=== PATIENT | female | born 1935 | race Caucasian/White ===

== ENCOUNTER 2018-03-28 01:46 | Emergency (ER) | payer MEDICARE, BC ==
[2018-03-28 02:23] VITALS: BP 128/65
--- NOTE | 2018-03-28 04:43 | EDM.PDOC ---
ED HPI GENERAL MEDICAL PROBLEM - General Chief Complaint: Chest Pain Stated Complaint: LEFT SIDE PAIN Time Seen by Provider: 03/28/18 02:31 Source of Information: Reports: Patient History Limitations: Reports: No Limitations - History of Present Illness INITIAL COMMENTS - FREE TEXT/NARRATIVE: This lady complains of pain under left breast along rib margin. Seems maybe belching helps. She's worried about K+ and TSH. Has a pacemaker. previous bypass and afrib. No sob, nolnause ano cp with exertion. She thinks maybe she strained too much while pulling on compression stockings. - Related Data Allergies Allergy/AdvReac Type Severity Reaction Status Date / Time codeine AdvReac Hallucinati Verified 03/28/18 02:01 ons Qxjcsqj-Dof-Hya Reductase AdvReac Joint Pain Verified 03/28/18 02:01 Inhibitor Home Meds: Home Meds LORazepam 0.5 mg PO Q4H PRN 11/16/13 [History] Thyroid [Mullens Thyroid] 60 mg PO DAILY 11/16/13 [History] Aspirin [Halfprin] 81 mg PO DAILY 11/23/15 [History] Ramipril 2.5 mg PO DAILY 11/23/15 [History] Sotalol HCl [Sotalol] 80 mg PO BID 11/23/15 [History] Magnesium Oxide [Magox 400] 241.3 mg PO BID 02/14/16 [History] Metoprolol Tartrate 12.5 mg PO BID 02/14/16 [History] Nitroglycerin [Nitrostat] 0.4 mg SL ASDIRECTED 02/14/16 [History] Warfarin [Coumadin] 5 mg PO ASDIRECTED 02/14/16 [History] Warfarin [Coumadin] 6.25 mg PO ASDIRECTED 03/28/18 [History] Past Medical History HEENT History: Reports: Impaired Vision Cardiovascular History: Reports: Afib, Arrhythmia, Hypertension, Pacemaker 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: Reports: Sleep Apnea 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: Musculoskeletal History: Reports: Osteoarthritis Neurological History: Reports: TIA Psychiatric History: Reports: Anxiety Endocrine/Metabolic History: Reports: Hyperthyroidism Hematologic History: Reports: Anticoagulation Therapy - Infectious Disease History Infectious Disease History: Reports: Chicken Pox, Measles, Shingles - Past Surgical History HEENT Surgical History: Reports: Oral Surgery Cardiovascular Surgical History: Reports: Cardiac Ablation, Coronary Artery Bypass, Pacer GI Surgical History: Reports: Appendectomy, Cholecystectomy Endocrine Surgical History: Reports: Thyroidectomy Musculoskeletal Surgical History: Reports: Knee Replacement, Shoulder Surgery Social & Family History - Tobacco Use Smoking Status *Q: Never Smoker - Recreational Drug Use Recreational Drug Use: No ED ROS GENERAL - Review of Systems Review Of Systems: ROS reveals no pertinent complaints other than HPI. ED EXAM, GENERAL - Physical Exam Exam: See Below Exam Limited By: No Limitations General Appearance: Alert, WD/WN, No Apparent Distress Eye Exam: Bilateral Eye: Normal Inspection Throat/Mouth: Normal Inspection Neck: Normal Inspection Respiratory/Chest: Lungs Clear, Other (moderately tend along left costal margin inframammary area) Peripheral Pulses: 2+: Radial (L), Radial (R), Posterior Tibial (L), Posterior Tibial (R) GI/Abdominal: Non-Tender Back Exam: Normal Inspection Extremities: Normal Inspection Neurological: Alert, Oriented Psychiatric: Normal Affect Skin Exam: Warm, Dry Course - Vital Signs Last Recorded V/S: Last Vital Signs Temp 36.8 C 03/28/18 01:59 Pulse 60 03/28/18 01:59 Resp 16 03/28/18 01:59 BP 128/65 03/28/18 01:59 Pulse Ox 99 03/28/18 01:59 - Orders/Labs/Meds Orders: Active Orders 24 hr Category Date Time Status EKG Documentation Completion [RC] ASDIRECTED Care 03/28/18 02:24 Active Chest 1V Frontal [CR] Urgent Exams 03/28/18 02:24 Taken EKG 12 Lead [EK] Urgent Ther 03/28/18 02:24 Ordered Labs: Laboratory Tests 03/28/18 03/28/18 03/28/18 Range/Units 02:35 02:35 03:36 WBC 7.2 (4.5-11.0) K/uL RBC 3.34 (3.30-5.50) M/uL Hgb 7.3 L D (12.0-15.0) g/dL Hct 23.7 L (36.0-48.0) % MCV 71 L (80-98) fL MCH 22 L (27-31) pg MCHC 31 L (32-36) % Plt Count 290 (150-400) K/uL Neut % (Auto) 57 (36-66) % Lymph % (Auto) 26 (24-44) % [place] % (Auto) 13 H (2-6) % Eos % (Auto) 3 (2-4) % Baso % (Auto) 0 (0-1) % Sodium 129 L (140-148) mmol/L Potassium 3.9 (3.6-5.2) mmol/L Chloride 93 L (100-108) mmol/L Carbon Dioxide 24 (21-32) mmol/L Anion Gap 15.9 H (5.0-14.0) mmol/L BUN 22 H (7-18) mg/dL Creatinine 1.2 H (0.6-1.0) mg/dL Est Cr Clr Drug Dosing 30.93 mL/min Estimated GFR (MDRD) 43 L (>60) Glucose 123 H (74-106) mg/dL Calcium 8.6 (8.5-10.1) mg/dL Total Bilirubin 0.6 (0.2-1.0) mg/dL AST 22 (15-37) U/L ALT 22 (12-78) U/L Alkaline Phosphatase 113 (46-116) U/L Troponin I < 0.017 (0.000-0.056) ng/mL Total Protein 6.5 (6.4-8.2) g/dL Albumin 3.1 L (3.4-5.0) g/dL Globulin 3.4 (2.3-3.5) g/dL Albumin/Globulin Ratio 0.9 L (1.2-2.2) - Radiology Interpretation Free Text/Narrative:: CXR shows normal heart size normal lung markings. pacemaker. - Re-Assessments/Exams Free Text/Narrative Re-Assessment/Exam: 03/28/18 07:11 EKG show atrial pacing borderline t abn. 03/28/18 07:13 She has remained pain free the entire time except when I palpate the rib margin Departure - Departure Time of Disposition: 04:40 Disposition: Home, Self-Care 01 Condition: Fair Clinical Impression: Chest wall pain Instructions: Chest Wall Pain, [id number] Referrals: Deedee Kumar PA [Primary Care Provider] - Forms: ED Department Discharge Additional Instructions: This appears to be pain in the chest wall and not from your heart. It may be from over exertion pulling on the compression stockings. You are severely anemic and this has developed over a long period of time. It looks like iron deficiency and this can happen from slow blood loss over along period. You will need further tests and iron replacement. If you continue to have chest pains you might need a transfusion. Please see your doctor in the next couple days. Return to the ER at any time if needed. - My Orders Last 24 Hours: My Active Orders 03/28/18 02:24 EKG Documentation Completion [RC] ASDIRECTED Chest 1V Frontal [CR] Urgent EKG 12 Lead [EK] Urgent - Assessment/Plan Last 24 Hours: My Active Orders 03/28/18 02:24 EKG Documentation Completion [RC] ASDIRECTED Chest 1V Frontal [CR] Urgent EKG 12 Lead [EK] Urgent
--- NOTE | 2018-03-28 09:40 | CR ---
CHEST: Portal CLINICAL HISTORY:Chest pain COMPARISON:25 March 2014 FINDINGS: The heart is mildly enlarged pulmonary vascular is normal. Patient has had previous sterno noe. There is a permanent cardiac pacer. There are atherosclerotic changes in the aorta. Lung vyas are clear IMPRESSION: Myocardial megaly No acute cardiopulmonary process
== END 2018-03-28 05:05 | disposition home or self-care (01) ==
LOC: JP.ED 01:46
DX: R07.89 Other chest pain (principal); E05.90 Thyrotoxicosis, unspecified without thyrotoxic crisis or storm; I48.91 Unspecified atrial fibrillation; I10 Essential (primary) hypertension; M19.90 Unspecified osteoarthritis, unspecified site; Z79.899 Other long term (current) drug therapy; Z79.01 Long term (current) use of anticoagulants; Z79.82 Long term (current) use of aspirin; Z88.8 Allergy status to other drugs, medicaments and biological substances; Z88.5 Allergy status to narcotic agent
CPT/HCPCS: 36415; 71045; 71045-26; 80053; 84484; 85025; 93005; 93010; 99284-25

== ENCOUNTER 2019-02-25 14:35 | Emergency (ER) | payer MEDICARE ==
[2019-02-25 14:48] VITALS: BP 186/78
[2019-02-25] MEDS ORDERED: Acetaminophen 500 MG Tab PO ONE (15:20)
[2019-02-25] MEDS ORDERED: Cyclobenzaprine 10 MG Tab PO ONE (15:21)
--- NOTE | 2019-02-25 15:29 | EDM.PDOC ---
ED HPI GENERAL MEDICAL PROBLEM - General Chief Complaint: Back Pain or Injury Stated Complaint: BACK PAIN Time Seen by Provider: 02/25/19 14:53 Source of Information: Reports: Patient, Family History Limitations: Reports: No Limitations - History of Present Illness INITIAL COMMENTS - FREE TEXT/NARRATIVE: 83 yo female presents with her family to the ER complaining of bilateral lumbar and flank pain. She denies injury to her back. She has had 2 chiropractor appt earlier this week without relief. she has been taking 303 formula without relief. Denies fever, chills, or dysuria. Lower Back Pain Score (Numeric/FACES): 10 - Related Data Allergies Allergy/AdvReac Type Severity Reaction Status Date / Time codeine AdvReac Hallucinati Verified 02/25/19 14:46 ons Kbljaty-Ikx-Cyq Reductase AdvReac Joint Pain Verified 02/25/19 14:46 Inhibitor Home Meds: Home Meds LORazepam 0.5 mg PO Q4H PRN 11/16/13 [History] Aspirin [Halfprin] 81 mg PO DAILY 11/23/15 [History] Ramipril 2.5 mg PO DAILY 11/23/15 [History] Sotalol HCl [Sotalol] 80 mg PO BID 11/23/15 [History] Magnesium Oxide [Magox 400] 241.3 mg PO BID 02/14/16 [History] Metoprolol Tartrate 12.5 mg PO BID 02/14/16 [History] Nitroglycerin [Nitrostat] 0.4 mg SL ASDIRECTED 02/14/16 [History] Warfarin [Coumadin] 6.25 mg PO DAILY 03/28/18 [History] Metoprolol Tartrate 12.5 mg PO BID 02/25/19 [History] Thyroid,Pork [Nature-Throid] 1.5 cap PO DAILY 02/25/19 [History] Past Medical History HEENT History: Reports: Impaired Vision Cardiovascular History: Reports: Afib, Arrhythmia, Hypertension, Pacemaker 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: Reports: Sleep Apnea 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: Musculoskeletal History: Reports: Back Pain, Chronic, Osteoarthritis Neurological History: Reports: TIA Psychiatric History: Reports: Anxiety Endocrine/Metabolic History: Reports: Hyperthyroidism Hematologic History: Reports: Anticoagulation Therapy - Infectious Disease History Infectious Disease History: Reports: Chicken Pox, Measles, Shingles - Past Surgical History HEENT Surgical History: Reports: Oral Surgery Cardiovascular Surgical History: Reports: Cardiac Ablation, Coronary Artery Bypass, Pacer GI Surgical History: Reports: Appendectomy, Cholecystectomy Endocrine Surgical History: Reports: Thyroidectomy Musculoskeletal Surgical History: Reports: Knee Replacement, Shoulder Surgery Social & Family History - Tobacco Use Smoking Status *Q: Never Smoker - Caffeine Use Caffeine Use: Reports: Coffee - Recreational Drug Use Recreational Drug Use: No ED ROS GENERAL - Review of Systems Review Of Systems: See Below Constitutional: Denies: Fever, Chills, Malaise Respiratory: Denies: Shortness of Breath, Wheezing Cardiovascular: Denies: Chest Pain GI/Abdominal: Denies: Abdominal Pain : Reports: Flank Pain. Denies: Dysuria Musculoskeletal: Reports: Back Pain, Muscle Pain Skin: Denies: Rash Neurological: Denies: Headache ED EXAM,LOWER BACK PAIN/INJURY - Physical Exam Exam: See Below Exam Limited By: No Limitations General Appearance: Alert, WD/WN, Mild Distress Head: Atraumatic, Normocephalic Neck: Normal Inspection, Supple, Non-Tender, Full Range of Motion. No: Lymphadenopathy (R), Lymphadenopathy (L) Respiratory/Chest: No Respiratory Distress, Lungs Clear, Normal Breath Sounds, No Accessory Muscle Use, Chest Non-Tender. No: Crackles, Rhonchi, Wheezing Cardiovascular: Regular Rate, Rhythm, No Murmur GI/Abdominal: Soft, Non-Tender Back Exam: CVA Tenderness (R), CVA Tenderness (L), Decreased Range of Motion, Muscle Spasm, Paraspinal Tenderness (thoratic and lumbar) Neurological: Alert Psychiatric: Normal Affect, Normal Mood Skin Exam: Warm, Dry, Intact. No: Rash Course - Vital Signs Last Recorded V/S: Last Vital Signs Temp 36.7 C 02/25/19 14:42 Pulse 63 02/25/19 14:42 Resp 16 02/25/19 14:42 BP 186/78 H 02/25/19 14:42 Pulse Ox 100 02/25/19 14:42 - Orders/Labs/Meds Orders: Active Orders 24 hr Category Date Time Status CULTURE URINE [RM] Stat Lab 02/25/19 16:17 Received Labs: Laboratory Tests 02/25/19 Range/Units 16:17 Urine Color Yellow Urine Appearance Clear Urine pH 8.0 (4.5-8.0) Ur Specific [place] 1.010 (1.008-1.030) Urine Protein Negative (NEGATIVE) mg/dL Urine Glucose (UA) Normal (NEGATIVE) mg/dL Urine Ketones Negative (NEGATIVE) mg/dL Urine Occult Blood Negative (NEGATIVE) Urine Nitrite Negative (NEGATIVE) Urine Bilirubin Negative (NEGATIVE) Urine Urobilinogen Normal (NORMAL) mg/dL Ur Leukocyte Esterase Moderate (NEGATIVE) Urine RBC 0-5 (0-5) Urine WBC 10-20 H (0-5) Ur Epithelial Cells Few Amorphous Sediment Not seen Urine Bacteria Moderate Urine Mucus Not seen Meds: Medications Discontinued Medications Generic Name Dose Route Start Last Admin Trade Name Freq PRN Reason Stop Dose Admin Acetaminophen 1,000 mg 02/25/19 15:20 02/25/19 15:32 Tylenol Extra Strength PO 02/25/19 15:21 1,000 mg ONETIME ONE Administration Cyclobenzaprine HCl 5 mg 02/25/19 15:21 02/25/19 15:32 Flexeril PO 02/25/19 15:22 5 mg ONETIME ONE Administration - Re-Assessments/Exams Free Text/Narrative Re-Assessment/Exam: 02/25/19 16:44 improvement in pain with oral medication Departure - Departure Time of Disposition: 16:44 Disposition: Home, Self-Care 01 Condition: Good Clinical Impression: UTI (urinary tract infection) Qualifiers: Urinary tract infection type: acute cystitis Hematuria presence: without hematuria Qualified Code(s): N30.00 - Acute cystitis without hematuria - Discharge Information *PRESCRIPTION DRUG MONITORING PROGRAM REVIEWED*: Not Applicable *COPY OF PRESCRIPTION DRUG MONITORING REPORT IN PATIENT LETHA: Not Applicable Instructions: Urinary Tract Infection, Adult, [id number] Referrals: PCP,None [Primary Care Provider] - Forms: ED Department Discharge Additional Instructions: Bactrim DS twice daily for 5 days follow-up with primary care if no improvement by Wednesday increase fluid intake with goal of 64 ounces - My Orders Last 24 Hours: My Active Orders 02/25/19 16:17 CULTURE URINE [RM] Stat - Assessment/Plan Last 24 Hours: My Active Orders 02/25/19 16:17 CULTURE URINE [RM] Stat
== END 2019-02-25 17:12 | disposition home or self-care (01) ==
LOC: JP.ED 14:35
DX: N30.00 Acute cystitis without hematuria (principal); I48.91 Unspecified atrial fibrillation; I10 Essential (primary) hypertension; M19.90 Unspecified osteoarthritis, unspecified site; Z88.5 Allergy status to narcotic agent; Z88.8 Allergy status to other drugs, medicaments and biological substances; Z79.82 Long term (current) use of aspirin; Z79.899 Other long term (current) drug therapy; Z79.01 Long term (current) use of anticoagulants; Z95.0 Presence of cardiac pacemaker; Z86.73 Personal history of transient ischemic attack (TIA), and cerebral infarction without residual deficits; Z98.890 Other specified postprocedural states; Z95.1 Presence of aortocoronary bypass graft; Z90.49 Acquired absence of other specified parts of digestive tract
CPT/HCPCS: 81001; 87086; 99283; A9270

== ENCOUNTER 2020-01-09 13:56 | Inpatient (IN) | payer MEDICARE ==
--- NOTE | 2020-01-09 14:15 | EDM.PDOC ---
ED HPI GENERAL MEDICAL PROBLEM - General Chief Complaint: Lower Extremity Injury/Pain Stated Complaint: FALL VIA NORTH Time Seen by Provider: 01/09/20 14:11 Source of Information: Reports: Patient History Limitations: Reports: No Limitations - History of Present Illness INITIAL COMMENTS - FREE TEXT/NARRATIVE: pt tripped and fell at home she hit the rt side of the forehead on the door. She also landed on her rt knee and has considerable swelling. Onset: Today, Sudden Duration: Hour(s): Location: Reports: Lower Extremity, Right Associated Symptoms: Reports: No Other Symptoms Right Knee Pain Score (Numeric/FACES): 8 - Related Data Allergies Allergy/AdvReac Type Severity Reaction Status Date / Time codeine AdvReac Hallucinati Verified 01/09/20 14:04 ons Sobvieo-Cwu-Rrp Reductase AdvReac Joint Pain Verified 01/09/20 14:04 Inhibitor Home Meds: Home Meds LORazepam 0.5 mg PO Q4H PRN 11/16/13 [History] Aspirin [Halfprin] 81 mg PO DAILY 11/23/15 [History] Ramipril 2.5 mg PO DAILY 11/23/15 [History] Sotalol HCl [Sotalol] 80 mg PO BID 11/23/15 [History] Magnesium Oxide [Magox 400] 241.3 mg PO BID 02/14/16 [History] Metoprolol Tartrate 12.5 mg PO BID 02/14/16 [History] Nitroglycerin [Nitrostat] 0.4 mg SL ASDIRECTED 02/14/16 [History] Warfarin [Coumadin] 6.25 mg PO DAILY 03/28/18 [History] Thyroid,Pork [Nature-Throid] 1.5 cap PO DAILY 02/25/19 [History] Cyclobenzaprine [Flexeril] 5 mg PO BID 01/09/20 [History] Ferrous Sulfate 325 mg PO DAILY 01/09/20 [History] Multivitamin [Multi-Vitamin Daily] 1 tab PO DAILY 01/09/20 [History] Past Medical History HEENT History: Reports: Impaired Vision Cardiovascular History: Reports: Afib, Arrhythmia, Hypertension, Pacemaker 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: Musculoskeletal History: Reports: Back Pain, Chronic, Osteoarthritis Neurological History: Reports: TIA Psychiatric History: Reports: Anxiety Endocrine/Metabolic History: Reports: Hyperthyroidism Hematologic History: Reports: Anticoagulation Therapy - Infectious Disease History Infectious Disease History: Reports: Chicken Pox, Measles, Shingles - Past Surgical History HEENT Surgical History: Reports: Oral Surgery Cardiovascular Surgical History: Reports: Cardiac Ablation, Coronary Artery Bypass, Pacer GI Surgical History: Reports: Appendectomy, Cholecystectomy Endocrine Surgical History: Reports: Thyroidectomy Musculoskeletal Surgical History: Reports: Knee Replacement, Shoulder Surgery Social & Family History - Tobacco Use Smoking Status *Q: Never Smoker - Caffeine Use Caffeine Use: Reports: Coffee - Recreational Drug Use Recreational Drug Use: No Review of Systems - Review of Systems Review Of Systems: See Below Constitutional: Reports: No Symptoms Eyes: Reports: No Symptoms, Other (pt hit the rt side of her head and she has swelling there. She was not knocked out. She is on coumadin therapy. ) Ears: Reports: No Symptoms Nose: Reports: No Symptoms Mouth/Throat: Reports: No Symptoms Respiratory: Reports: No Symptoms Cardiovascular: Reports: No Symptoms GI/Abdominal: Reports: No Symptoms Genitourinary: Reports: No Symptoms Musculoskeletal: Reports: Other (pain in the rt knee. ) ED EXAM, GENERAL - Physical Exam Exam: See Below Free Text/Narrative:: pt has a blow to the head with swelling over the forehead. She was not knocked. out Exam Limited By: No Limitations General Appearance: Alert, Anxious, Moderate Distress Ears: Normal TMs Nose: Normal Inspection Throat/Mouth: Normal Inspection Head: Atraumatic Neck: Normal Inspection Respiratory/Chest: No Respiratory Distress Cardiovascular: Regular Rate, Rhythm GI/Abdominal: Soft, Non-Tender (Female) Exam: Deferred Rectal (Female) Exam: Deferred Back Exam: Normal Inspection Extremities: Other (pt has a markedly swollen rt knee. This is very painful) Neurological: Alert, Oriented, Normal Cognition Psychiatric: Anxious Course - Vital Signs Last Recorded V/S: Last Vital Signs Temp 36.1 C 01/09/20 14:08 Pulse 59 L 01/09/20 15:20 Resp 18 01/09/20 14:08 BP 199/98 H 01/09/20 15:20 Pulse Ox 99 01/09/20 15:20 - Orders/Labs/Meds Orders: Active Orders 24 hr Category Date Time Status EKG Documentation Completion [RC] ASDIRECTED Care 01/09/20 15:30 Ordered Chest 1V Frontal [CR] Stat Exams 01/09/20 15:31 Ordered Femur Min 2V Rt [CR] Stat Exams 01/09/20 14:10 Taken Head wo Cont [CT] Stat Exams 01/09/20 14:44 Taken Knee Min 4V Rt [CR] Stat Exams 01/09/20 14:10 Taken COMPREHENSIVE METABOLIC PN,CMP [CHEM] Urgent Lab 01/09/20 15:28 Ordered UA W/MICROSCOPIC [URIN] Urgent Lab 01/09/20 15:28 Ordered Sodium Chloride 0.9% [Normal Saline] 1,000 ml Med 01/09/20 15:30 Ordered IV ASDIRECTED EKG 12 Lead [EK] Routine Ther 01/09/20 15:30 Ordered Medication Orders Sodium Chloride (Normal Saline) 1,000 mls @ 250 mls/hr IV ASDIRECTED SONIA Last Admin: 01/09/20 15:32 Dose: 250 mls/hr Labs: Laboratory Tests 01/09/20 01/09/20 Range/Units 14:20 14:20 WBC 11.1 H (4.5-11.0) K/uL RBC 4.62 (3.30-5.50) M/uL Hgb 12.4 D (12.0-15.0) g/dL Hct 37.9 (36.0-48.0) % MCV 82 (80-98) fL MCH 27 (27-31) pg MCHC 33 (32-36) % Plt Count 332 (150-400) K/uL Neut % (Auto) 72 H (36-66) % Lymph % (Auto) 16 L (24-44) % [place] % (Auto) 11 H (2-6) % Eos % (Auto) 2 (2-4) % Baso % (Auto) 1 (0-1) % PT 21.9 H (9.5-12.0) sec INR 2.12 H (0.80-1.20) Meds: Medications Generic Name Dose Route Start Last Admin Trade Name Freq PRN Reason Stop Dose Admin Sodium Chloride 1,000 mls @ 250 mls/hr 01/09/20 15:30 01/09/20 15:32 Normal Saline IV 250 mls/hr ASDIRECTED SONIA Administration Discontinued Medications Generic Name Dose Route Start Last Admin Trade Name Freq PRN Reason Stop Dose Admin Hydromorphone HCl 0.5 mg 01/09/20 15:28 01/09/20 15:32 Dilaudid IVPUSH 01/09/20 15:29 0.5 mg ONETIME ONE Administration Ondansetron HCl 4 mg 01/09/20 15:27 01/09/20 15:32 Zofran IVPUSH 01/09/20 15:28 4 mg ONETIME ONE Administration - Re-Assessments/Exams Free Text/Narrative Re-Assessment/Exam: 01/09/20 15:41 pt was seen by Dr Varner and he plans to do surgery in the am. Pt is on coumadin and will need to be prepared for surgery. Pt did have a cat scan of the head which looks neg-- awaiting the radiologist review. Departure - Departure Time of Disposition: 15:44 Disposition: Admitted As Inpatient 68 Condition: Fair Clinical Impression: Fracture of distal femur, Atrial fibrillation, History of Coumadin therapy, Contusion of forehead - Discharge Information Referrals: PCP,None [Primary Care Provider] - Forms: ED Department Discharge Care Plan Goals: admit to Dr Anand--plan for surgery tomorrow with Dr Varner. Sepsis Event Note - Evaluation Sepsis Screening Result: No Definite Risk - Focused Exam Vital Signs: Vital Signs Temp Pulse Resp BP Pulse Ox 01/09/20 15:20 59 L 199/98 H 99 01/09/20 15:10 64 225/108 H 01/09/20 14:08 36.1 C 64 18 218/98 H 99 Date Exam was Performed: 01/09/20 Time Exam was Performed: 15:41 - My Orders Last 24 Hours: My Active Orders 01/09/20 14:10 Femur Min 2V Rt [CR] Stat Knee Min 4V Rt [CR] Stat 01/09/20 14:44 Head wo Cont [CT] Stat 01/09/20 15:28 COMPREHENSIVE METABOLIC PN,CMP [CHEM] Urgent UA W/MICROSCOPIC [URIN] Urgent 01/09/20 15:30 EKG Documentation Completion [RC] ASDIRECTED Sodium Chloride 0.9% [Normal Saline] 1,000 ml IV ASDIRECTED EKG 12 Lead [EK] Routine 01/09/20 15:31 Chest 1V Frontal [CR] Stat - Assessment/Plan Last 24 Hours: My Active Orders 01/09/20 14:10 Femur Min 2V Rt [CR] Stat Knee Min 4V Rt [CR] Stat 01/09/20 14:44 Head wo Cont [CT] Stat 01/09/20 15:28 COMPREHENSIVE METABOLIC PN,CMP [CHEM] Urgent UA W/MICROSCOPIC [URIN] Urgent 01/09/20 15:30 EKG Documentation Completion [RC] ASDIRECTED Sodium Chloride 0.9% [Normal Saline] 1,000 ml IV ASDIRECTED EKG 12 Lead [EK] Routine 01/09/20 15:31 Chest 1V Frontal [CR] Stat
[2020-01-09] MEDS ORDERED: Ondansetron 4 MG/2 ML SDV IVPUSH ONE (15:27)
[2020-01-09] MEDS ORDERED: HYDROmorphone 0.5 MG/0.5 ML Syringe IVPUSH ONE (15:28)
[2020-01-09] MEDS ORDERED: Sodium Chloride 0.9% 1,000 ML IV SCH (15:30)
--- NOTE | 2020-01-09 15:55 | CRLCT ---
INDICATION: Trauma on Coumadin COMPARISON: February 14, 2016 TECHNIQUE: CT examination of the head was performed as axial sections without intravenous contrast. Images were obtained from the vertex of the skull through the skull base. Please note that all CT scans at this facility use dose modulation, iterative reconstruction, and/or weight-based dosing when appropriate to reduce radiation dose to as low as reasonably achievable. FINDINGS: The brain shows no sign of mass lesion, mass effect, hemorrhage, or edema. There are involutional changes. There is djwt-zp-zxygynpv cortical atrophy and there is mild to moderate white matter disease. There is no hydrocephalus. The visualized portions of the orbits are normal in appearance. The osseous structures are normal in appearance with no sign of abnormality in the skull base or calvarium. Subcutaneous hematoma in the right frontal area. IMPRESSION: Subcutaneous hematoma in the right frontal area. No skull fracture. Involutional changes but no acute intracranial posttraumatic findings. Please note that all CT scans at this facility use dose modulation, iterative reconstruction, and/or weight-based dosing when appropriate to reduce radiation dose to as low as reasonably achievable. Dictated by Wilfred Mcknight MD @ Jan 09 2020 3:51PM Signed by Dr. Wilfred Mcknight @ Jan 09 2020 3:55PM
[2020-01-09] MEDS ORDERED: Phytonadione 5 MG in Sodium Chloride 0.9% 50 ML IV ONE (16:03)
--- NOTE | 2020-01-09 16:34 | PCM.HP.2 ---
H&P History of Present Illness - General Date of Service: 01/09/20 Admit Problem/Dx: Admission Diagnosis/Problem Admission Diagnosis/Problem Fracture of femur Source of Information: Patient, Family, Provider History Limitations: Reports: No Limitations - History of Present Illness Initial Comments - Free Text/Narative: CC: I must have stumbled HPI: Gloria presented to the emergency room today with severe right knee pain after tripping and falling. When she fell she hit her right forehead area on the door frame. Her right knee struck the ground causing immediate sharp and severe pain which was severe. The pain is localized to the right knee area and does not radiate. Pain has been steady since onset. She did get a dose of pain medication in the ambulance which helped some. She reports that her pain is less intense when she does not move it but is very severe with any sort of movement of the right leg. She has had some nausea since the event but felt well prior to the event this afternoon. She has not had recent difficulties with fevers, cough, shortness of breath or abdominal pain. No change in bowel or bladder habits. No sick contacts. She is had multiple surgeries in the past and has had difficulty with nausea/vomiting following anesthesia. Functional status had been acceptable prior to the fall. Work-up in the emergency room revealed evidence for a displaced fracture of the distal right femur. Head CT was unremarkable. Chest x-ray was unremarkable. Labs are fairly unremarkable. She will be admitted for surgical management of the distal femur fracture. Right Knee Pain Score (Numeric/FACES): 8 - Related Data Allergies/Adverse Reactions: Allergies Allergy/AdvReac Type Severity Reaction Status Date / Time codeine AdvReac Hallucinati Verified 01/09/20 14:04 ons Vcmsgsy-Iho-Mjr Reductase AdvReac Joint Pain Verified 01/09/20 14:04 Inhibitor Home Medications: Home Meds LORazepam 0.5 mg PO Q4H PRN 11/16/13 [History] Aspirin [Halfprin] 81 mg PO DAILY 11/23/15 [History] Ramipril 2.5 mg PO DAILY 11/23/15 [History] Sotalol HCl [Sotalol] 80 mg PO BID 11/23/15 [History] Magnesium Oxide [Magox 400] 241.3 mg PO BID 02/14/16 [History] Metoprolol Tartrate 12.5 mg PO BID 02/14/16 [History] Nitroglycerin [Nitrostat] 0.4 mg SL ASDIRECTED 02/14/16 [History] Warfarin [Coumadin] 6.25 mg PO DAILY 03/28/18 [History] Thyroid,Pork [Nature-Throid] 1.5 cap PO DAILY 02/25/19 [History] Cyclobenzaprine [Flexeril] 5 mg PO BID 01/09/20 [History] Ferrous Sulfate 325 mg PO DAILY 01/09/20 [History] Multivitamin [Multi-Vitamin Daily] 1 tab PO DAILY 01/09/20 [History] Past Medical History HEENT History: Reports: Impaired Vision Cardiovascular History: Reports: Afib, Arrhythmia, Hypertension, Pacemaker 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: Reports: Sleep Apnea 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: Musculoskeletal History: Reports: Back Pain, Chronic, Osteoarthritis Neurological History: Reports: TIA Psychiatric History: Reports: Anxiety Endocrine/Metabolic History: Reports: Hyperthyroidism Hematologic History: Reports: Anticoagulation Therapy - Infectious Disease History Infectious Disease History: Reports: Chicken Pox, Measles, Shingles - Past Surgical History HEENT Surgical History: Reports: Oral Surgery Cardiovascular Surgical History: Reports: Cardiac Ablation, Coronary Artery Bypass, Pacer GI Surgical History: Reports: Appendectomy, Cholecystectomy Endocrine Surgical History: Reports: Thyroidectomy Musculoskeletal Surgical History: Reports: Knee Replacement, Shoulder Surgery Social & Family History - Family History Cardiac: Denies: CAD - Tobacco Use Smoking Status *Q: Never Smoker - Caffeine Use Caffeine Use: Reports: Coffee - Recreational Drug Use Recreational Drug Use: No H&P Review of Systems - Review of Systems: Review Of Systems: See Below Free Text/Narrative: A complete 12 point review of systems was obtained. Pertinent positives and negatives are noted in the history of present illness. All other systems were reviewed and were negative except as noted. Exam - Exam Exam: See Below - Vital Signs Vital Signs: Last Vital Signs Temp 36.1 C 01/09/20 14:08 Pulse 60 01/09/20 15:52 Resp 18 01/09/20 14:08 BP 182/89 H 01/09/20 15:52 Pulse Ox 99 01/09/20 15:20 Weight: 58.967 kg - Exam Quality Assessment: No: Supplemental Oxygen General: Alert, Oriented, Cooperative HEENT: Conjunctiva Clear, Mucosa Moist & [place]. No: Scleral Icterus Neck: Supple, Trachea Midline Lungs: Clear to Auscultation, Normal Respiratory Effort Cardiovascular: Regular Rate, Regular Rhythm. No: Systolic Murmur GI/Abdominal Exam: Normal Bowel Sounds, Soft, Non-Tender, No Distention Extremities: No Pedal Edema, Other (Right knee wrapped in a leg immobilizer). No: Increased Warmth Skin: Warm, Dry, Ecchymosis (Above the right eye and extending down into the periorbital area) Neuro Extensive - Mental Status: Alert, Oriented x3, Nl Response to Commands Neuro Extensive - Motor, Sensory, Reflexes: Tremor. No: Dysarthria, Abnormal Motor Psychiatric: Alert, Normal Affect - Patient Data Lab Results Last 24 hrs: Laboratory Results - last 24 hr 01/09/20 01/09/20 01/09/20 Range/Units 14:20 14:20 15:28 WBC 11.1 H (4.5-11.0) K/uL RBC 4.62 (3.30-5.50) M/uL Hgb 12.4 D (12.0-15.0) g/dL Hct 37.9 (36.0-48.0) % MCV 82 (80-98) fL MCH 27 (27-31) pg MCHC 33 (32-36) % Plt Count 332 (150-400) K/uL Neut % (Auto) 72 H (36-66) % Lymph % (Auto) 16 L (24-44) % [place] % (Auto) 11 H (2-6) % Eos % (Auto) 2 (2-4) % Baso % (Auto) 1 (0-1) % PT 21.9 H (9.5-12.0) sec INR 2.12 H (0.80-1.20) Sodium 127 L (140-148) mmol/L Potassium 4.0 (3.6-5.2) mmol/L Chloride 93 L (100-108) mmol/L Carbon Dioxide 25 (21-32) mmol/L Anion Gap 13.0 (5.0-14.0) mmol/L BUN 22 H (7-18) mg/dL Creatinine 0.9 (0.6-1.0) mg/dL Est Cr Clr Drug Dosing 38.12 mL/min Estimated GFR (MDRD) 60 (>60) Glucose 145 H (74-106) mg/dL Calcium 8.6 (8.5-10.1) mg/dL Total Bilirubin 0.5 (0.2-1.0) mg/dL AST 28 (15-37) U/L ALT 25 (12-78) U/L Alkaline Phosphatase 119 H (46-116) U/L Total Protein 6.8 (6.4-8.2) g/dL Albumin 3.0 L (3.4-5.0) g/dL Globulin 3.8 H (2.3-3.5) g/dL Albumin/Globulin Ratio 0.8 L (1.2-2.2) Result Diagrams: 01/09/20 14:20 01/09/20 15:28 Imaging Impressions Last 24 hrs: Chest x-ray-image personally reviewed-lungs clear with no mass, infiltrate or effusion. She does have a pacemaker present. Previous sternotomy changes noted. Right knee/femur [id number] personally reviewed-displaced fracture of the distal femur Head CT-no acute intracranial abnormality such as mass, bleed or stroke. Sepsis Event Note - Evaluation Sepsis Screening Result: No Definite Risk - Focused Exam Vital Signs: Vital Signs Temp Pulse Resp BP Pulse Ox 01/09/20 15:52 60 182/89 H 01/09/20 15:20 59 L 199/98 H 99 01/09/20 15:10 64 225/108 H 01/09/20 14:08 36.1 C 64 18 218/98 H 99 Date Exam was Performed: 01/09/20 Time Exam was Performed: 16:44 *Q Meaningful Use (ADM) - VTE *Q VTE Pharmacological Contraindications *Q: Patient Scheduled Surgery - Problem List (1) Fracture of distal femur SNOMED Code(s): 294673430 ICD Code: S72.409A - UNSP FRACTURE OF LOWER END OF UNSP FEMUR, INIT FOR CLOS FX Status: Acute Current Visit: Yes Qualifiers: Encounter type: initial encounter Fracture type: closed Fracture morphology: unspecified fracture morphology Laterality: right Qualified Code (s): S72.401A - Unspecified fracture of lower end of right femur, initial encounter for closed fracture (2) Contusion of forehead SNOMED Code(s): 819736007 ICD Code: S00.83XA - CONTUSION OF OTHER PART OF HEAD, INITIAL ENCOUNTER Status: Acute Current Visit: Yes (3) Atrial fibrillation SNOMED Code(s): 44868151 ICD Code: I48.91 - UNSPECIFIED ATRIAL FIBRILLATION Status: Chronic Current Visit: Yes Qualifiers: Atrial fibrillation type: paroxysmal Qualified Code(s): I48.0 - Paroxysmal atrial fibrillation Problem List Initiated/Reviewed/Updated: Yes Orders Last 24hrs: Active Orders 24 hr Category Date Time Status Patient Status Manage Transfer [TRANSFER] Routine ADT 01/09/20 16:25 Ordered EKG Documentation Completion [RC] ASDIRECTED Care 01/09/20 15:30 Active Chest 1V Frontal [CR] Stat Exams 01/09/20 15:31 Taken Femur Min 2V Rt [CR] Stat Exams 01/09/20 14:10 Taken Knee Min 4V Rt [CR] Stat Exams 01/09/20 14:10 Taken UA W/MICROSCOPIC [URIN] Urgent Lab 01/09/20 15:28 Ordered Sodium Chloride 0.9% [Normal Saline] 1,000 ml Med 01/09/20 15:30 Active IV ASDIRECTED Resuscitation Status Routine Resus Stat 01/09/20 16:27 Ordered EKG 12 Lead [EK] Routine Ther 01/09/20 15:30 Ordered Medication Orders Sodium Chloride (Normal Saline) 1,000 mls @ 250 mls/hr IV ASDIRECTED SONIA Last Admin: 01/09/20 15:32 Dose: 250 mls/hr Assessment/Plan Comment:: ASSESSMENT AND PLAN - Right distal femur fracture, closed-secondary to mechanical fall. Initially with severe pain. Leg now in an immobilizer. Orthopedic team has been consulted and surgery is planned for tomorrow. Once her INR is normalized she will be in optimal achievable medical condition for the proposed surgery. Functional status is acceptable. She does have a history of nausea/vomiting following anesthesia. -5 mg of IV vitamin K now -INR in the morning -Pain control -Orthopedic consultation with surgery planned in the morning Right forehead contusion-may be a component of concussion after the fall. This could explain some of her nausea but nausea could also be from pain medications. -Close monitoring Chronic atrial fibrillation-chronically anticoagulated. Seems to be in sinus rhythm at this time. -Reverse INR as above -Continue sotalol and metoprolol -Restart warfarin once stable after surgery Maintenance issues - - DVT prophylaxis -mechanical until after surgery - GI prophylaxis -not indicated - Nutrition -regular diet tonight, nothing by mouth after midnight - Aicha catheter -could be considered if patient has severe pain or suboptimal urine output CODE STATUS -full code Admission justification -my inpatient justification Disposition -I would anticipate discharge to a [place] [facility] for subacute rehab versus possibly home with home care Primary care physician - Dr Yuri Anand M.D. - Mortality Measure Prognosis:: Good
[2020-01-09] MEDS ORDERED: Magnesium Hydroxide 400 MG/5 ML Susp 30 ML Cup PO PRN (17:01)
[2020-01-09] MEDS ORDERED: HYDROmorphone 1 MG/ML Syringe IVPUSH PRN (17:01)
[2020-01-09] MEDS ORDERED: Ondansetron 4 MG/2 ML SDV IV PRN (17:01)
[2020-01-09] MEDS ORDERED: LORazepam 0.5 MG Tab PO PRN (17:01)
[2020-01-09] MEDS ORDERED: LORazepam 2 MG/ML SDV IVPUSH PRN (17:01)
[2020-01-09] MEDS: Sodium Chloride 0.9% 1,000 ML IV SCH ×2 (17:22→21:25)
--- NOTE | 2020-01-09 18:29 | PCM.CONS ---
H&P History of Present Illness - General Date of Service: 01/09/20 Admit Problem/Dx: Admission Diagnosis/Problem Admission Diagnosis/Problem Fracture of femur Source of Information: Patient, Family, Provider History Limitations: Reports: No Limitations - History of Present Illness Initial Comments - Free Text/Narative: 84 year old female sustained a floor level fall this afternoon when she tripped over something on the floor. She struck her head and landed on her right knee. She was unable to get up or weight bear on the right leg. She did not have any LOC, dizziness or syncope. Presents to the ED with significant swelling of the right knee. She has a pacemaker and is on Coumadin therapy. Onset of Symptoms: Reports: Today, Sudden Location: Reports: Lower Extremity, Right Quality: Reports: Sharp, Stabbing Severity: Severe Improves with: Reports: Immobilization Worsens with: Reports: Movement Right Knee Pain Score (Numeric/FACES): 8 - Related Data Allergies/Adverse Reactions: Allergies Allergy/AdvReac Type Severity Reaction Status Date / Time codeine AdvReac Hallucinati Verified 01/09/20 14:04 ons Tkobunb-Vaz-Kmp Reductase AdvReac Joint Pain Verified 01/09/20 14:04 Inhibitor Home Medications: Home Meds LORazepam 0.5 mg PO Q4H PRN 11/16/13 [History] Aspirin [Halfprin] 81 mg PO DAILY 11/23/15 [History] Ramipril 2.5 mg PO DAILY 11/23/15 [History] Sotalol HCl [Sotalol] 80 mg PO BID 11/23/15 [History] Magnesium Oxide [Magox 400] 241.3 mg PO BID 02/14/16 [History] Metoprolol Tartrate 12.5 mg PO BID 02/14/16 [History] Nitroglycerin [Nitrostat] 0.4 mg SL ASDIRECTED 02/14/16 [History] Warfarin [Coumadin] 6.25 mg PO DAILY 03/28/18 [History] Thyroid,Pork [Nature-Throid] 1.5 cap PO DAILY 02/25/19 [History] Cyclobenzaprine [Flexeril] 5 mg PO BID 01/09/20 [History] Ferrous Sulfate 325 mg PO DAILY 01/09/20 [History] Multivitamin [Multi-Vitamin Daily] 1 tab PO DAILY 01/09/20 [History] Past Medical History HEENT History: Reports: Impaired Vision Cardiovascular History: Reports: Afib, Arrhythmia, Hypertension, Pacemaker 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: Reports: Sleep 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: Musculoskeletal History: Reports: Back Pain, Chronic, Osteoarthritis Neurological History: Reports: TIA Psychiatric History: Reports: Anxiety Endocrine/Metabolic History: Reports: Hyperthyroidism Hematologic History: Reports: Anticoagulation Therapy - Infectious Disease History Infectious Disease History: Reports: Chicken Pox, Measles, Shingles - Past Surgical History HEENT Surgical History: Reports: Oral Surgery Cardiovascular Surgical History: Reports: Cardiac Ablation, Coronary Artery Bypass, Pacer GI Surgical History: Reports: Appendectomy, Cholecystectomy Endocrine Surgical History: Reports: Thyroidectomy Musculoskeletal Surgical History: Reports: Knee Replacement, Shoulder Surgery Social & Family History - Family History Family Medical History: Noncontributory Cardiac: Denies: CAD - Tobacco Use Smoking Status *Q: Never Smoker - Caffeine Use Caffeine Use: Reports: Coffee - Recreational Drug Use Recreational Drug Use: No H&P Review of Systems - Review of Systems: Review Of Systems: Comprehensive ROS is negative, except as noted in HPI. Exam - Exam Exam: See Below - Vital Signs Vital Signs: Last Vital Signs Temp 35.7 C L 01/09/20 17:16 Pulse 66 01/09/20 17:16 Resp 16 01/09/20 17:16 BP 182/72 H 01/09/20 17:16 Pulse Ox 99 01/09/20 17:16 Weight: 58.967 kg - Exam General: Alert, Oriented HEENT: PERRLA, Conjunctiva Clear, EOMI, Hearing Intact, Mucosa Moist & [place], Pupils Equal, Pupils Reactive Lungs: Normal Respiratory Effort Extremities: Other (Right knee with pain on any motion, the leg is slightly shorter than the left, knee is swollen ) - Patient Data Lab Results Last 24 hrs: Laboratory Results - last 24 hr 01/09/20 01/09/20 01/09/20 Range/Units 14:20 14:20 15:28 WBC 11.1 H (4.5-11.0) K/uL RBC 4.62 (3.30-5.50) M/uL Hgb 12.4 D (12.0-15.0) g/dL Hct 37.9 (36.0-48.0) % MCV 82 (80-98) fL MCH 27 (27-31) pg MCHC 33 (32-36) % Plt Count 332 (150-400) K/uL Neut % (Auto) 72 H (36-66) % Lymph % (Auto) 16 L (24-44) % [place] % (Auto) 11 H (2-6) % Eos % (Auto) 2 (2-4) % Baso % (Auto) 1 (0-1) % PT 21.9 H (9.5-12.0) sec INR 2.12 H (0.80-1.20) Sodium 127 L (140-148) mmol/L Potassium 4.0 (3.6-5.2) mmol/L Chloride 93 L (100-108) mmol/L Carbon Dioxide 25 (21-32) mmol/L Anion Gap 13.0 (5.0-14.0) mmol/L BUN 22 H (7-18) mg/dL Creatinine 0.9 (0.6-1.0) mg/dL Est Cr Clr Drug Dosing 38.12 mL/min Estimated GFR (MDRD) 60 (>60) Glucose 145 H (74-106) mg/dL Calcium 8.6 (8.5-10.1) mg/dL Total Bilirubin 0.5 (0.2-1.0) mg/dL AST 28 (15-37) U/L ALT 25 (12-78) U/L Alkaline Phosphatase 119 H (46-116) U/L Total Protein 6.8 (6.4-8.2) g/dL Albumin 3.0 L (3.4-5.0) g/dL Globulin 3.8 H (2.3-3.5) g/dL Albumin/Globulin Ratio 0.8 L (1.2-2.2) Result Diagrams: 01/09/20 14:20 01/09/20 15:28 Sepsis Event Note - Evaluation Sepsis Screening Result: No Definite Risk - Focused Exam Vital Signs: Vital Signs Temp Pulse Resp BP Pulse Ox 01/09/20 17:16 35.7 C L 66 16 182/72 H 99 01/09/20 15:52 60 182/89 H 01/09/20 15:20 59 L 199/98 H 99 01/09/20 15:10 64 225/108 H 01/09/20 14:08 36.1 C 64 18 218/98 H 99 Date Exam was Performed: 01/09/20 Time Exam was Performed: 18:24 *Q Meaningful Use (ADM) - VTE *Q VTE Pharmacological Contraindications *Q: Patient Scheduled Surgery Consult PN Assessment/Plan Procedures: Procedures ASSAY OF CK (CPK) (03/04/14) ASSAY OF FREE THYROXINE (03/04/14) ASSAY OF MAGNESIUM (03/25/14) ASSAY OF NATRIURETIC PEPTIDE (03/25/14) ASSAY OF PHOSPHORUS (03/25/14) ASSAY OF TROPONIN QUANT (03/28/18) ASSAY THYROID STIM HORMONE (03/25/14) CARDIOVASCULAR STRESS TEST (09/03/17) CARDIOVERSION ELECTRIC EXT (11/16/13) CHEST X-RAY 1 VIEW FRONTAL (11/16/13) CHEST X-RAY 2VW FRONTAL&LATL (03/25/14) COMPLETE CBC AUTOMATED (03/04/14) COMPLETE CBC W/AUTO DIFF WBC (03/28/18) COMPREHEN METABOLIC PANEL (03/28/18) CT HEAD/BRAIN W/O & W/DYE (03/04/14) CT HEAD/BRAIN W/O DYE (02/13/16) ELECTROCARDIOGRAM REPORT (11/16/13) ELECTROCARDIOGRAM TRACING (03/28/18) EMERGENCY DEPT VISIT (02/25/19) EMERGENCY DEPT VISIT (03/28/18) EMERGENCY DEPT VISIT (11/23/15) EMERGENCY DEPT VISIT (03/25/14) EMERGENCY DEPT VISIT (11/16/13) EMERGENCY DEPT VISIT (11/16/13) EMERGENCY DEPT VISIT (06/17/13) EMERGENCY DEPT VISIT (06/17/13) EXTRACRANIAL BILAT STUDY (03/04/14) HOT OR COLD PACKS THERAPY (11/03/13) HT MUSCLE IMAGE SPECT MULT (09/03/17) MANUAL THERAPY 1/> REGIONS (01/16/14) METABOLIC PANEL TOTAL CA (03/04/14) PROTHROMBIN TIME (02/13/16) PT EVALUATION (11/03/13) ROUTINE VENIPUNCTURE (03/28/18) THER/PROPH/DIAG INJ SC/IM (11/23/15) THER/PROPH/DIAG IV INF ADDON (11/16/13) THER/PROPH/DIAG IV INF INIT (11/16/13) THERAPEUTIC EXERCISES (01/16/14) THROMBOPLASTIN TIME PARTIAL (03/04/14) TTE W/DOPPLER COMPLETE (10/26/17) TX/PRO/DX INJ NEW DRUG ADDON (11/16/13) URINALYSIS AUTO W/SCOPE (02/25/19) URINE CULTURE/COLONY COUNT (02/25/19) X-RAY EXAM CHEST 1 VIEW (03/28/18) X-RAY EXAM L-S SPINE 2/3 VWS (02/24/19) (1) Fracture of distal femur SNOMED Code(s): 376835668 Code(s): S72.409A - UNSP FRACTURE OF LOWER END OF UNSP FEMUR, INIT FOR CLOS FX Current Visit: Yes Comment: Displaced supracondylar fracture Qualifiers: Encounter type: initial encounter Fracture type: closed Fracture morphology: unspecified fracture morphology Laterality: right Qualified Code (s): S72.401A - Unspecified fracture of lower end of right femur, initial encounter for closed fracture Assessment:: Displaced right supracondylar femur fracture. Head contusion without evidence of closed head injury at this time. Coumadin therapy with PT of 2.1. Recommend open reduction and internal fixation of right femur. Admit and recheck PT/INR in am. Would ideally like the PT to be down around 1.5. Monitor for CHI. Tentatively plan ORIF tomorrow morning. Discussed with patient and her daughter. Problem List Initiated/Reviewed/Updated: Yes
[2020-01-09] MEDS: Sotalol 80 MG Tab PO SCH (20:31)
[2020-01-09] MEDS: Ondansetron 4 MG Tab.DIS PO PRN (20:32)
[2020-01-09] MEDS: oxyCODONE 5 MG Tab PO PRN (20:32)
[2020-01-09] MEDS: Melatonin 3 MG Tab PO SCH (20:33)
[2020-01-09] MEDS: Metoprolol Tartrate 25 MG Tab PO SCH (20:33)
[2020-01-10] MEDS: oxyCODONE 5 MG Tab PO PRN ×4 (00:12→19:59)
[2020-01-10] MEDS ORDERED: Bupivacaine 0.5% 30 ML SDV ONE (07:36)
[2020-01-10] MEDS ORDERED: Povidone-Iodine 10% Soln 118.25 ML Bottle ONE (07:36)
[2020-01-10] MEDS ORDERED: ceFAZolin 2 GM in Premix Bag 1 BAG IV ONE (09:00)
[2020-01-10] MEDS: Metoprolol Tartrate 25 MG Tab PO SCH ×2 (09:03→20:07)
[2020-01-10] MEDS ORDERED: fentaNYL 250 MCG/5 ML SDV ONE (09:04)
[2020-01-10] MEDS ORDERED: Dexamethasone 4 MG/ML SDV ONE (09:06)
[2020-01-10] MEDS ORDERED: Rocuronium 50 MG/5 ML Vial ONE (09:06)
[2020-01-10] MEDS ORDERED: Neostigmine Methylsulfate 1 MG/ML 5 ML Syringe ONE (09:06)
[2020-01-10] MEDS ORDERED: Ondansetron 4 MG/2 ML SDV ONE (09:06)
[2020-01-10] MEDS ORDERED: Scopolamine 1.5 MG Transdermal Patch ONE (09:06)
[2020-01-10] MEDS ORDERED: Propofol 200 MG/20 ML SDV ONE (09:06)
[2020-01-10] MEDS ORDERED: Glycopyrrolate 0.2 MG/ML 5 ML MDV ONE (09:06)
[2020-01-10] MEDS ORDERED: Lactated Ringers 1,000 ML ONE (09:17)
[2020-01-10] MEDS ORDERED: ePHEDrine 50 MG/ML SDV ONE (09:33)
--- NOTE | 2020-01-10 10:30 | CR ---
Femur Min 2V Rt, CLINICAL HISTORY: Swollen knee FINDINGS: There is a comminuted displaced fracture of the distal femur. There are severe degenerative changes in the knee joint with some lateral subluxation of the tibia. Impression: Comminuted displaced fracture of the distal femur. Pathologic fracture is not excluded Knee 1V or 2V Rt CLINICAL HISTORY: Swelling at the knee FINDINGS: Patient is a comminuted displaced fracture of the distal femoral metaphysis with some impaction. There are severe osteoarthritic changes in the knee. IMPRESSION: Comminuted fracture distal femur with impaction Pathologic fracture is not excluded Severe osteoarthritis in the knee
--- NOTE | 2020-01-10 10:40 | CR ---
CHEST: Portable 01/09/2020 at 3:52 PM CLINICAL HISTORY:SOB COMPARISON:2018 FINDINGS: Heart is mildly enlarged. Patient has had prior sternotomy. Pulmonary vascularity is normal. There are atherosclerotic changes in the aorta.. The there is a permit cardiac pacer with multiple old and new sequential leads in place. No infiltrates are seen. There is some perihilar bronchiectasis, greater on the left similar to prior studies IMPRESSION: No acute cardiopulmonary process Mild cardiomegaly Chronic perihilar bronchiectasis and scarring
[2020-01-10] MEDS: Ondansetron 4 MG Tab.DIS PO PRN (12:33)
--- NOTE | 2020-01-10 13:39 | PCM.PN ---
- General Info Date of Service: 01/10/20 Subjective Update: There were no acute events overnight. Patient had an uneventful surgery this morning with an open reduction and internal fixation. She feels tired after surgery but her pain is minimal at this time. No significant nausea and no vomiting. Hemoglobin level did drop from 12 down to around 9-1/2. Blood pressure stable. Functional Status: Reports: Pain Controlled - Patient Data Vitals - Most Recent: Last Vital Signs Temp 36.7 C 01/10/20 13:17 Pulse 60 01/10/20 13:17 Resp 14 01/10/20 13:17 BP 104/56 L 01/10/20 13:17 Pulse Ox 100 01/10/20 13:17 Weight - Most Recent: 58.967 kg I&O - Last 24 Hours: Intake & Output 01/09/20 01/10/20 01/10/20 22:59 06:59 14:59 Intake Total 1234 125 Output Total 450 125 Balance 784 0 Lab Results Last 24 Hours: Laboratory Results - last 24 hr 01/09/20 01/09/20 01/09/20 Range/Units 14:20 14:20 15:28 WBC 11.1 H (4.5-11.0) K/uL RBC 4.62 (3.30-5.50) M/uL Hgb 12.4 D (12.0-15.0) g/dL Hct 37.9 (36.0-48.0) % MCV 82 (80-98) fL MCH 27 (27-31) pg MCHC 33 (32-36) % Plt Count 332 (150-400) K/uL Neut % (Auto) 72 H (36-66) % Lymph % (Auto) 16 L (24-44) % Schleicher % (Auto) 11 H (2-6) % Eos % (Auto) 2 (2-4) % Baso % (Auto) 1 (0-1) % PT 21.9 H (9.5-12.0) sec INR 2.12 H (0.80-1.20) Sodium 127 L (140-148) mmol/L Potassium 4.0 (3.6-5.2) mmol/L Chloride 93 L (100-108) mmol/L Carbon Dioxide 25 (21-32) mmol/L Anion Gap 13.0 (5.0-14.0) mmol/L BUN 22 H (7-18) mg/dL Creatinine 0.9 (0.6-1.0) mg/dL Est Cr Clr Drug Dosing 38.12 mL/min Estimated GFR (MDRD) 60 (>60) Glucose 145 H (74-106) mg/dL Calcium 8.6 (8.5-10.1) mg/dL Total Bilirubin 0.5 (0.2-1.0) mg/dL AST 28 (15-37) U/L ALT 25 (12-78) U/L Alkaline Phosphatase 119 H (46-116) U/L Total Protein 6.8 (6.4-8.2) g/dL Albumin 3.0 L (3.4-5.0) g/dL Globulin 3.8 H (2.3-3.5) g/dL Albumin/Globulin Ratio 0.8 L (1.2-2.2) Urine Color (YELLOW) Urine Appearance (CLEAR) Urine pH (5.0-8.0) Ur Specific [place] (1.008-1.030) Urine Protein (NEGATIVE) mg/dL Urine Glucose (UA) (NEGATIVE) mg/dL Urine Ketones (NEGATIVE) mg/dL Urine Occult Blood (NEGATIVE) Urine Nitrite (NEGATIVE) Urine Bilirubin (NEGATIVE) Urine Urobilinogen (0.2-1.0) EU/dL Ur Leukocyte Esterase (NEGATIVE) Urine RBC (0-5) Urine WBC (0-5) Ur Epithelial Cells Urine Bacteria Urine Other Blood Type Gel Antibody Screen 01/10/20 01/10/20 01/10/20 Range/Units 00:10 04:20 04:20 WBC 10.1 (4.5-11.0) K/uL RBC 3.53 (3.30-5.50) M/uL Hgb 9.5 L D (12.0-15.0) g/dL Hct 29.8 L (36.0-48.0) % MCV 84 (80-98) fL MCH 27 (27-31) pg MCHC 32 (32-36) % Plt Count 217 (150-400) K/uL Neut % (Auto) (36-66) % Lymph % (Auto) (24-44) % Schleicher % (Auto) (2-6) % Eos % (Auto) (2-4) % Baso % (Auto) (0-1) % PT 15.4 H (9.5-12.0) sec INR 1.46 H (0.80-1.20) Sodium (140-148) mmol/L Potassium (3.6-5.2) mmol/L Chloride (100-108) mmol/L Carbon Dioxide (21-32) mmol/L Anion Gap (5.0-14.0) mmol/L BUN (7-18) mg/dL Creatinine (0.6-1.0) mg/dL Est Cr Clr Drug Dosing mL/min Estimated GFR (MDRD) (>60) Glucose (74-106) mg/dL Calcium (8.5-10.1) mg/dL Total Bilirubin (0.2-1.0) mg/dL AST (15-37) U/L ALT (12-78) U/L Alkaline Phosphatase (46-116) U/L Total Protein (6.4-8.2) g/dL Albumin (3.4-5.0) g/dL Globulin (2.3-3.5) g/dL Albumin/Globulin Ratio (1.2-2.2) Urine Color Yellow (YELLOW) Urine Appearance Clear (CLEAR) Urine pH 6.5 (5.0-8.0) Ur Specific [place] 1.025 (1.008-1.030) Urine Protein Negative (NEGATIVE) mg/dL Urine Glucose (UA) Negative (NEGATIVE) mg/dL Urine Ketones Trace H (NEGATIVE) mg/dL Urine Occult Blood Negative (NEGATIVE) Urine Nitrite Negative (NEGATIVE) Urine Bilirubin Negative (NEGATIVE) Urine Urobilinogen 0.2 (0.2-1.0) EU/dL Ur Leukocyte Esterase Trace H (NEGATIVE) Urine RBC 0-5 (0-5) Urine WBC 0-5 (0-5) Ur Epithelial Cells Few Urine Bacteria Few Urine Other Blood Type Gel Antibody Screen 01/10/20 01/10/20 Range/Units 04:20 04:20 WBC (4.5-11.0) K/uL RBC (3.30-5.50) M/uL Hgb (12.0-15.0) g/dL Hct (36.0-48.0) % MCV (80-98) fL MCH (27-31) pg MCHC (32-36) % Plt Count (150-400) K/uL Neut % (Auto) (36-66) % Lymph % (Auto) (24-44) % Schleicher % (Auto) (2-6) % Eos % (Auto) (2-4) % Baso % (Auto) (0-1) % PT (9.5-12.0) sec INR (0.80-1.20) Sodium 130 L (140-148) mmol/L Potassium 4.2 (3.6-5.2) mmol/L Chloride 96 L (100-108) mmol/L Carbon Dioxide 25 (21-32) mmol/L Anion Gap 13.2 (5.0-14.0) mmol/L BUN 26 H (7-18) mg/dL Creatinine 0.9 (0.6-1.0) mg/dL Est Cr Clr Drug Dosing 38.12 mL/min Estimated GFR (MDRD) 60 (>60) Glucose 135 H (74-106) mg/dL Calcium 8.0 L (8.5-10.1) mg/dL Total Bilirubin (0.2-1.0) mg/dL AST (15-37) U/L ALT (12-78) U/L Alkaline Phosphatase (46-116) U/L Total Protein (6.4-8.2) g/dL Albumin (3.4-5.0) g/dL Globulin (2.3-3.5) g/dL Albumin/Globulin Ratio (1.2-2.2) Urine Color (YELLOW) Urine Appearance (CLEAR) Urine pH (5.0-8.0) Ur Specific [place] (1.008-1.030) Urine Protein (NEGATIVE) mg/dL Urine Glucose (UA) (NEGATIVE) mg/dL Urine Ketones (NEGATIVE) mg/dL Urine Occult Blood (NEGATIVE) Urine Nitrite (NEGATIVE) Urine Bilirubin (NEGATIVE) Urine Urobilinogen (0.2-1.0) EU/dL Ur Leukocyte Esterase (NEGATIVE) Urine RBC (0-5) Urine WBC (0-5) Ur Epithelial Cells Urine Bacteria Urine Other Blood Type O POSITIVE Gel Antibody Screen Negative Med Orders - Current: Current Medications Acetaminophen (Tylenol) 650 mg PO Q4H PRN PRN Reason: Pain (Mild 1-3)/fever Aspirin (Halfprin) 81 mg PO DAILY [facility] Hydromorphone HCl (Dilaudid) 0.5 mg IVPUSH Q2H PRN PRN Reason: Pain (severe 7-10) Last Admin: 01/09/20 17:36 Dose: 0.5 mg Sodium Chloride (Normal Saline) 1,000 mls @ 100 mls/hr IV ASDIRECTED [facility] Last Admin: 01/09/20 21:25 Dose: 75 mls/hr Sodium Chloride (Normal Saline) 1,000 mls @ 100 mls/hr IV ASDIRECTED [facility] Lorazepam (Ativan) 0.5 mg PO Q4H PRN PRN Reason: Anxiety Lorazepam (Ativan) 0.5 mg IVPUSH Q4H PRN PRN Reason: Nausea/Vomiting Magnesium Hydroxide (Milk Of Magnesia) 30 ml PO Q12H PRN PRN Reason: Constipation Melatonin (Melatonin) 9 mg PO BEDTIME [facility] Last Admin: 01/09/20 20:33 Dose: 9 mg Metoprolol Tartrate (Lopressor) 12.5 mg PO BID [facility] Last Admin: 01/10/20 09:03 Dose: 12.5 mg Ondansetron HCl (Zofran Odt) 4 mg PO Q6H PRN PRN Reason: Nausea able to take PO Last Admin: 01/10/20 12:33 Dose: 4 mg Ondansetron HCl (Zofran) 4 mg IV Q6H PRN PRN Reason: Nausea/Vomiting Oxycodone HCl (Oxycodone) 5 - 10 mg PO Q4H PRN PRN Reason: Pain Last Admin: 01/10/20 12:32 Dose: 5 mg Ramipril (Altace) 5 mg PO DAILY [facility] Senna/Docusate Sodium (Senna Plus) 1 tab PO BID PRN PRN Reason: Constipation Sotalol HCl (Betapace) 80 mg PO BID [facility] Last Admin: 01/09/20 20:31 Dose: 80 mg Thyroid (Winn Thyroid) 240 mg PO DAILY [facility] Discontinued Medications Bupivacaine HCl (Marcaine 0.5%) Confirm Administered Dose 30 ml .ROUTE .STK-MED ONE Stop: 01/10/20 07:37 Dexamethasone (Dexamethasone) Confirm Administered Dose 4 mg .ROUTE .STK-MED ONE Stop: 01/10/20 09:07 Ephedrine Sulfate (Ephedrine Sulfate) Confirm Administered Dose 50 mg .ROUTE .STK-MED ONE Stop: 01/10/20 09:34 Fentanyl (Sublimaze) Confirm Administered Dose 250 mcg .ROUTE .STK-MED ONE Stop: 01/10/20 09:05 Glycopyrrolate (Robinul) Confirm Administered Dose 1 mg .ROUTE .STK-MED ONE Stop: 01/10/20 09:07 Hydromorphone HCl (Dilaudid) 0.5 mg IVPUSH ONETIME ONE Stop: 01/09/20 15:29 Last Admin: 01/09/20 15:32 Dose: 0.5 mg Sodium Chloride (Normal Saline) 1,000 mls @ 250 mls/hr IV ASDIRECTED [facility] Last Admin: 01/09/20 15:32 Dose: 250 mls/hr Phytonadione 5 mg/ Sodium (Chloride) 50.5 mls @ 100 mls/hr IV NOW ONE Stop: 01/09/20 16:33 Last Admin: 01/09/20 16:08 Dose: 100 mls/hr Cefazolin Sodium/Dextrose 2 gm (/ Premix) 50 mls @ 100 mls/hr IV ONETIME ONE Stop: 01/10/20 09:29 Last Admin: 01/10/20 08:58 Dose: 100 mls/hr Lactated Ringer's (Ringers, Lactated) Confirm Administered Dose 1,000 mls @ as directed .ROUTE .STK-MED ONE Stop: 01/10/20 09:18 Neostigmine Methylsulfate (Neostigmine) Confirm Administered Dose 5 mg .ROUTE .STK-MED ONE Stop: 01/10/20 09:07 Ondansetron HCl (Zofran) 4 mg IVPUSH ONETIME ONE Stop: 01/09/20 15:28 Last Admin: 01/09/20 15:32 Dose: 4 mg Ondansetron HCl (Zofran) Confirm Administered Dose 4 mg .ROUTE .STK-MED ONE Stop: 01/10/20 09:07 Povidone Iodine (Betadine 10% Soln) Confirm Administered Dose 1 ml .ROUTE .STK- MED ONE Stop: 01/10/20 07:37 Propofol (Diprivan 20 Ml) Confirm Administered Dose 200 mg .ROUTE .STK-MED ONE Stop: 01/10/20 09:07 Rocuronium [place] (Zemuron) Confirm Administered Dose 50 mg .ROUTE .STK-MED ONE Stop: 01/10/20 09:07 Scopolamine (Transderm-Scop) Confirm Administered Dose 1.5 mg .ROUTE .STK-MED ONE Stop: 01/10/20 09:07 - Exam General: Alert, Oriented, No Acute Distress Lungs: Normal Respiratory Effort Cardiovascular: Regular Rate, Regular Rhythm GI/Abdominal Exam: Soft, No Distention Extremities: No Pedal Edema, Other (Right leg is in an immobilizer.) Psy/Mental Status: Alert, Normal Affect Sepsis Event Note - Evaluation Sepsis Screening Result: No Definite Risk - Focused Exam Vital Signs: Vital Signs Temp Temp Pulse Pulse Resp BP BP 01/10/20 13:17 36.7 C 60 14 104/56 L 01/10/20 12:45 36.9 C 59 L 18 109/47 L 01/10/20 12:34 36.6 C 59 L 16 94/53 L 01/10/20 12:15 36.9 C 61 16 121/46 L 01/10/20 12:04 36.4 C 59 L 14 128/50 L 01/10/20 11:45 36.4 C 60 16 133/47 L 01/10/20 11:40 60 16 125/53 L 01/10/20 11:35 60 14 138/91 H 01/10/20 11:30 36.2 C 60 14 139/58 L 01/10/20 11:25 60 14 132/53 L 01/10/20 11:20 60 14 140/52 L 01/10/20 11:15 36 C L 60 14 142/60 H 01/10/20 09:03 69 119/67 01/10/20 07:00 37.3 C 65 18 119/67 01/10/20 02:21 36.6 C 66 16 149/118 H Pulse Ox 01/10/20 13:17 100 01/10/20 12:45 93 L 01/10/20 12:34 100 01/10/20 12:15 96 01/10/20 12:04 98 01/10/20 11:45 96 01/10/20 11:40 98 01/10/20 11:35 98 01/10/20 11:30 98 01/10/20 11:25 100 01/10/20 11:20 100 01/10/20 11:15 100 01/10/20 09:03 01/10/20 07:00 100 01/10/20 02:21 96 Date Exam was Performed: 01/10/20 Time Exam was Performed: 13:36 - Problem List & Annotations (1) Fracture of distal femur SNOMED Code(s): 195244400 Code(s): S72.409A - UNSP FRACTURE OF LOWER END OF UNSP FEMUR, INIT FOR CLOS FX Status: Acute Current Visit: Yes Qualifiers: Encounter type: initial encounter Fracture type: closed Fracture morphology: unspecified fracture morphology Laterality: right Qualified Code (s): S72.401A - Unspecified fracture of lower end of right femur, initial encounter for closed fracture Annotation/Comment:: Displaced supracondylar fracture (2) Contusion of forehead SNOMED Code(s): 822255365 Code(s): S00.83XA - CONTUSION OF OTHER PART OF HEAD, INITIAL ENCOUNTER Status: Acute Current Visit: Yes Qualifiers: Encounter type: initial encounter Qualified Code(s): S00.83XA - Contusion of other part of head, initial encounter (3) Atrial fibrillation SNOMED Code(s): 92611164 Code(s): I48.91 - UNSPECIFIED ATRIAL FIBRILLATION Status: Chronic Current Visit: Yes Qualifiers: Atrial fibrillation type: paroxysmal Qualified Code(s): I48.0 - Paroxysmal atrial fibrillation - Problem List Review Problem List Initiated/Reviewed/Updated: Yes - My Orders Last 24 Hours: My Active Orders 01/09/20 16:27 Resuscitation Status Routine 01/09/20 17:01 Patient Status [ADT] Routine Antiembolic Devices [RC] .Routine Bedrest Bedside Commode [RC] ASDIRECTED Intake and Output [RC] QSHIFT Notify Provider Consults [RC] ASDIRECTED Notify Provider Vital Signs [RC] ASDIRECTED Oxygen Therapy [RC] PRN VTE/DVT Education [RC] Per Unit Routine Vital Signs [RC] Q4H Consult to Physician [CONS] Routine Acetaminophen [Tylenol] 650 mg PO Q4H PRN Docusate Sodium/Sennosides [Senna Plus] 1 tab PO BID PRN HYDROmorphone [Dilaudid] 0.5 mg IVPUSH Q2H PRN LORazepam [Ativan] 0.5 mg IVPUSH Q4H PRN LORazepam [Ativan] 0.5 mg PO Q4H PRN Magnesium Hydroxide [Milk of Magnesia] 30 ml PO Q12H PRN Ondansetron [Zofran ODT] 4 mg PO Q6H PRN Ondansetron [Zofran] 4 mg IV Q6H PRN Sodium Chloride 0.9% [Normal Saline] 1,000 ml IV ASDIRECTED oxyCODONE 5 - 10 mg PO Q4H PRN Antiembolic Hose [OM.PC] Routine VTE Pharmacological Contraindications [AST] Routine 01/09/20 21:00 Melatonin 9 mg PO BEDTIME Metoprolol Tartrate [Lopressor] 12.5 mg PO BID Sotalol [Betapace] 80 mg PO BID 01/09/20 Dinner Nothing per Oral After Midnight Diet [DIET] 01/10/20 09:00 Aspirin [Halfprin] 81 mg PO DAILY 01/10/20 12:00 Thyroid [Winn Thyroid] 240 mg PO DAILY 01/10/20 13:00 ramipriL [Altace] 5 mg PO DAILY - Plan Plan:: ASSESSMENT AND PLAN - Right distal femur fracture, closed-secondary to mechanical fall. Status post ORIF on 01/09. Doing well postoperatively. -toe-touch weightbearing -Physical therapy -Pain control -Orthopedic consultation with Dr Perez Anemia due to blood loss-hemoglobin dropped from 12 to about 9.5 even prior to surgery. Hematoma in the area of the fracture is suspected. -Repeat hemoglobin ordered for this afternoon, transfuse if indicated -Repeat hemoglobin in the morning Right forehead contusion-may be a component of concussion after the fall. Seems to be doing well. -Close monitoring Chronic atrial fibrillation-vitals stable. -Continue sotalol and metoprolol -Restart warfarin once stable after surgery Maintenance issues - - DVT prophylaxis -mechanical until after surgery - GI prophylaxis -not indicated - Nutrition -regular diet tonight, nothing by mouth after midnight - Holcomb catheter -placed in the operating room today Disposition -I would anticipate discharge to a prison facility for subacute rehab versus possibly home with home care Primary care physician - Dr Yuri Anand M.D.
[2020-01-10] MEDS: Sodium Chloride 0.9% 1,000 ML IV SCH (14:09)
[2020-01-10] MEDS: Aspirin 81 MG Tab.EC PO SCH (14:10)
[2020-01-10] MEDS: Sotalol 80 MG Tab PO SCH ×2 (14:10→20:07)
[2020-01-10] MEDS: Acetaminophen 325 MG Tab PO PRN (19:59)
[2020-01-10] MEDS: Melatonin 3 MG Tab PO SCH (20:03)
[2020-01-11] MEDS: Sodium Chloride 0.9% 1,000 ML IV SCH ×3 (00:28→20:00)
[2020-01-11] MEDS: Acetaminophen 325 MG Tab PO PRN ×2 (00:31→17:21)
[2020-01-11] MEDS: oxyCODONE 5 MG Tab PO PRN (00:31)
[2020-01-11] MEDS ORDERED: Sodium Chloride 0.9% 250 ML IV ONE (02:38)
[2020-01-11] MEDS: Aspirin 81 MG Tab.EC PO SCH (09:42)
[2020-01-11] MEDS: Sotalol 80 MG Tab PO SCH ×2 (09:42→21:06)
[2020-01-11] MEDS: Metoprolol Tartrate 25 MG Tab PO SCH ×2 (09:42→21:08)
--- NOTE | 2020-01-11 10:22 | PCM.PN ---
- General Info Date of Service: 01/11/20 Subjective Update: Overnight the patient had some difficulty with confusion but this seems to be doing better today. The scopolamine patch was removed. She feels foggy after pain medications but otherwise feels okay. No significant nausea and no vomiting. Pain is well controlled at rest but moderate to moderately severe with any activity. She did have her first round of physical therapy this morning. Hemoglobin is down to 7.2 and a blood transfusion is planned. Functional Status: Reports: Pain Controlled, Tolerating Diet - Review of Systems Neurological: Reports: Confusion - Patient Data Vitals - Most Recent: Last Vital Signs Temp 36.4 C 01/11/20 09:18 Pulse 68 01/11/20 09:42 Resp 16 01/11/20 09:18 BP 111/55 L 01/11/20 09:42 Pulse Ox 100 01/11/20 09:18 Weight - Most Recent: 58.967 kg I&O - Last 24 Hours: Intake & Output 01/10/20 01/11/20 01/11/20 22:59 06:59 14:59 Intake Total 1026 1423 Output Total 210 280 60 Balance 816 1143 -60 Lab Results Last 24 Hours: Laboratory Results - last 24 hr 01/10/20 01/10/20 01/11/20 Range/Units 04:20 14:00 05:12 WBC 18.9 H 14.5 H (4.5-11.0) K/uL RBC 3.17 L 2.58 L (3.30-5.50) M/uL Hgb 8.5 L 7.2 L (12.0-15.0) g/dL Hct 26.7 L 21.8 L (36.0-48.0) % MCV 84 85 (80-98) fL MCH 27 28 (27-31) pg MCHC 32 33 (32-36) % Plt Count 243 194 (150-400) K/uL Sodium (140-148) mmol/L Potassium (3.6-5.2) mmol/L Chloride (100-108) mmol/L Carbon Dioxide (21-32) mmol/L Anion Gap (5.0-14.0) mmol/L BUN (7-18) mg/dL Creatinine (0.6-1.0) mg/dL Est Cr Clr Drug Dosing mL/min Estimated GFR (MDRD) (>60) Glucose (74-106) mg/dL Calcium (8.5-10.1) mg/dL Blood Type O POSITIVE Gel Antibody Screen Negative Crossmatch See Detail 01/11/20 Range/Units 05:12 WBC (4.5-11.0) K/uL RBC (3.30-5.50) M/uL Hgb (12.0-15.0) g/dL Hct (36.0-48.0) % MCV (80-98) fL MCH (27-31) pg MCHC (32-36) % Plt Count (150-400) K/uL Sodium 131 L (140-148) mmol/L Potassium 4.0 (3.6-5.2) mmol/L Chloride 98 L (100-108) mmol/L Carbon Dioxide 23 (21-32) mmol/L Anion Gap 14.0 (5.0-14.0) mmol/L BUN 32 H (7-18) mg/dL Creatinine 1.1 H (0.6-1.0) mg/dL Est Cr Clr Drug Dosing 31.19 mL/min Estimated GFR (MDRD) 48 L (>60) Glucose 148 H (74-106) mg/dL Calcium 8.0 L (8.5-10.1) mg/dL Blood Type Gel Antibody Screen Crossmatch Med Orders - Current: Current Medications Acetaminophen (Tylenol) 650 mg PO Q4H PRN PRN Reason: Pain (Mild 1-3)/fever Last Admin: 01/11/20 00:31 Dose: 650 mg Aspirin (Halfprin) 81 mg PO DAILY [facility] Last Admin: 01/11/20 09:42 Dose: 81 mg Hydromorphone HCl (Dilaudid) 0.5 mg IVPUSH Q2H PRN PRN Reason: Pain (severe 7-10) Last Admin: 01/09/20 17:36 Dose: 0.5 mg Sodium Chloride (Normal Saline) 1,000 mls @ 100 mls/hr IV ASDIRECTED [facility] Last Admin: 01/11/20 08:16 Dose: 100 mls/hr Lorazepam (Ativan) 0.5 mg PO Q4H PRN PRN Reason: Anxiety Lorazepam (Ativan) 0.5 mg IVPUSH Q4H PRN PRN Reason: Nausea/Vomiting Magnesium Hydroxide (Milk Of Magnesia) 30 ml PO Q12H PRN PRN Reason: Constipation Melatonin (Melatonin) 9 mg PO BEDTIME [facility] Last Admin: 01/10/20 20:03 Dose: 9 mg Metoprolol Tartrate (Lopressor) 12.5 mg PO BID [facility] Last Admin: 01/11/20 09:42 Dose: 12.5 mg Ondansetron HCl (Zofran Odt) 4 mg PO Q6H PRN PRN Reason: Nausea able to take PO Last Admin: 01/10/20 12:33 Dose: 4 mg Ondansetron HCl (Zofran) 4 mg IV Q6H PRN PRN Reason: Nausea/Vomiting Oxycodone HCl (Oxycodone) 5 - 10 mg PO Q4H PRN PRN Reason: Pain Last Admin: 01/11/20 00:31 Dose: 10 mg Ramipril (Altace) 5 mg PO DAILY [facility] Last Admin: 01/11/20 09:40 Dose: 5 mg Senna/Docusate Sodium (Senna Plus) 1 tab PO BID PRN PRN Reason: Constipation Sotalol HCl (Betapace) 80 mg PO BID [facility] Last Admin: 01/11/20 09:42 Dose: 80 mg Thyroid (Cooper Thyroid) 240 mg PO DAILY [facility] Last Admin: 01/11/20 09:41 Dose: 240 mg Discontinued Medications Bupivacaine HCl (Marcaine 0.5%) Confirm Administered Dose 30 ml .ROUTE .STK-MED ONE Stop: 01/10/20 07:37 Dexamethasone (Dexamethasone) Confirm Administered Dose 4 mg .ROUTE .STK-MED ONE Stop: 01/10/20 09:07 Ephedrine Sulfate (Ephedrine Sulfate) Confirm Administered Dose 50 mg .ROUTE .STK-MED ONE Stop: 01/10/20 09:34 Fentanyl (Sublimaze) Confirm Administered Dose 250 mcg .ROUTE .STK-MED ONE Stop: 01/10/20 09:05 Glycopyrrolate (Robinul) Confirm Administered Dose 1 mg .ROUTE .STK-MED ONE Stop: 01/10/20 09:07 Hydromorphone HCl (Dilaudid) 0.5 mg IVPUSH ONETIME ONE Stop: 01/09/20 15:29 Last Admin: 01/09/20 15:32 Dose: 0.5 mg Sodium Chloride (Normal Saline) 1,000 mls @ 250 mls/hr IV ASDIRECTED [facility] Last Admin: 01/09/20 15:32 Dose: 250 mls/hr Phytonadione 5 mg/ Sodium (Chloride) 50.5 mls @ 100 mls/hr IV NOW ONE Stop: 01/09/20 16:33 Last Admin: 01/09/20 16:08 Dose: 100 mls/hr Sodium Chloride (Normal Saline) 1,000 mls @ 100 mls/hr IV ASDIRECTED [facility] Last Admin: 01/11/20 00:28 Dose: 75 mls/hr Cefazolin Sodium/Dextrose 2 gm (/ Premix) 50 mls @ 100 mls/hr IV ONETIME ONE Stop: 01/10/20 09:29 Last Admin: 01/10/20 08:58 Dose: 100 mls/hr Lactated Ringer's (Ringers, Lactated) Confirm Administered Dose 1,000 mls @ as directed .ROUTE .STK-MED ONE Stop: 01/10/20 09:18 Sodium Chloride (Normal Saline) 250 mls @ 250 mls/hr IV ONETIME ONE Stop: 01/11/20 03:37 Last Admin: 01/11/20 02:46 Dose: 250 mls/hr Neostigmine Methylsulfate (Neostigmine) Confirm Administered Dose 5 mg .ROUTE .STK-MED ONE Stop: 01/10/20 09:07 Ondansetron HCl (Zofran) 4 mg IVPUSH ONETIME ONE Stop: 01/09/20 15:28 Last Admin: 01/09/20 15:32 Dose: 4 mg Ondansetron HCl (Zofran) Confirm Administered Dose 4 mg .ROUTE .STK-MED ONE Stop: 01/10/20 09:07 Povidone Iodine (Betadine 10% Soln) Confirm Administered Dose 1 ml .ROUTE .STK- MED ONE Stop: 01/10/20 07:37 Propofol (Diprivan 20 Ml) Confirm Administered Dose 200 mg .ROUTE .STK-MED ONE Stop: 01/10/20 09:07 Rocuronium [place] (Zemuron) Confirm Administered Dose 50 mg .ROUTE .STK-MED ONE Stop: 01/10/20 09:07 Scopolamine (Transderm-Scop) Confirm Administered Dose 1.5 mg .ROUTE .STK-MED ONE Stop: 01/10/20 09:07 - Exam Quality Assessment: No: Supplemental Oxygen General: Alert, Oriented, Cooperative, No Acute Distress Neck: Supple Lungs: Normal Respiratory Effort Cardiovascular: Regular Rate, Regular Rhythm GI/Abdominal Exam: Soft, No Distention Extremities: No Pedal Edema, Other (right leg wrapped with GAMALIEL from ankle to proximal thigh and leg immobilizer in place) Skin: Warm, Dry Psy/Mental Status: Alert, Normal Affect Sepsis Event Note - Evaluation Sepsis Screening Result: No Definite Risk - Focused Exam Vital Signs: Vital Signs Temp Pulse Pulse Resp BP BP Pulse Ox 01/11/20 09:42 68 111/55 L 01/11/20 09:40 111/55 L 01/11/20 09:18 36.4 C 68 16 111/55 L 100 01/11/20 02:24 36.1 C 111 H 18 109/46 L 100 01/10/20 22:51 36.3 C 61 16 112/45 L 100 Date Exam was Performed: 01/11/20 Time Exam was Performed: 15:04 - Problem List & Annotations (1) Fracture of distal femur SNOMED Code(s): 196966664 Code(s): S72.409A - UNSP FRACTURE OF LOWER END OF UNSP FEMUR, INIT FOR CLOS FX Status: Acute Current Visit: Yes Qualifiers: Encounter type: initial encounter Fracture type: closed Fracture morphology: unspecified fracture morphology Laterality: right Qualified Code (s): S72.401A - Unspecified fracture of lower end of right femur, initial encounter for closed fracture Annotation/Comment:: Displaced supracondylar fracture (2) Contusion of forehead SNOMED Code(s): 096357740 Code(s): S00.83XA - CONTUSION OF OTHER PART OF HEAD, INITIAL ENCOUNTER Status: Acute Current Visit: Yes Qualifiers: Encounter type: initial encounter Qualified Code(s): S00.83XA - Contusion of other part of head, initial encounter (3) Atrial fibrillation SNOMED Code(s): 35441855 Code(s): I48.91 - UNSPECIFIED ATRIAL FIBRILLATION Status: Chronic Current Visit: Yes Qualifiers: Atrial fibrillation type: paroxysmal Qualified Code(s): I48.0 - Paroxysmal atrial fibrillation - Problem List Review Problem List Initiated/Reviewed/Updated: Yes - My Orders Last 24 Hours: My Active Orders 01/10/20 12:00 Thyroid [Cooper Thyroid] 240 mg PO DAILY 01/10/20 13:00 ramipriL [Altace] 5 mg PO DAILY 01/11/20 08:57 RED BLOOD CELLS LP [BBK] Routine Transfuse Red Blood Cells [COMM] Routine 01/12/20 05:00 BASIC METABOLIC PANEL,BMP [CHEM] Timed CBC W/O DIFF,HEMOGRAM [HEME] Timed (1) - Plan Plan:: ASSESSMENT AND PLAN - Right distal femur fracture, closed-secondary to mechanical fall. Status post ORIF on 01/09. Doing well postoperatively. -toe-touch weightbearing -Physical therapy -Pain control -Orthopedic consultation with Dr Perez Anemia due to blood loss-hemoglobin now down to 7.2 and transfusion is planned. -Transfuse 1 unit of packed red blood cells -Repeat hemoglobin in the morning Right forehead contusion-clinically doing well. -Close monitoring Chronic atrial fibrillation-vitals stable. -Continue sotalol and metoprolol -Restart warfarin once stable after surgery (holding off today with her anemia) Maintenance issues - - DVT prophylaxis -mechanical until after surgery - GI prophylaxis -not indicated - Nutrition -regular diet tonight - Holcomb catheter -placed in the operating room, will leave in place with borderline urine output so far Disposition -I would anticipate discharge to a retirement facility for subacute rehab Primary care physician - Dr Yuri Anand M.D.
[2020-01-11] MEDS ORDERED: traMADol 50 MG Tab PO PRN (10:35)
--- NOTE | 2020-01-11 16:18 | PCM.SURGPN ---
- General Info Date of Service: 01/11/20 Date of Surgery/Procedure: 01/10/20 POD#: 1 Functional Status: Reports: Pain Controlled, Tolerating Diet - Review of Systems General: Reports: No Symptoms Musculoskeletal: Reports: Leg Pain, Joint Swelling Neurological: Reports: Confusion - Patient Data Vitals - Most Recent: Last Vital Signs Temp 36.9 C 01/11/20 15:00 Pulse 73 01/11/20 15:00 Resp 18 01/11/20 15:00 BP 96/46 L 01/11/20 15:00 Pulse Ox 94 L 01/11/20 15:00 Weight - Most Recent: 58.967 kg I&O - Last 24 Hours: Intake & Output 01/11/20 01/11/20 01/11/20 06:59 14:59 22:59 Intake Total 1423 938 Output Total 280 125 Balance 1143 813 Lab Results Last 24 Hrs: Laboratory Results - last 24 hr 01/10/20 01/11/20 01/11/20 Range/Units 04:20 05:12 05:12 WBC 14.5 H (4.5-11.0) K/uL RBC 2.58 L (3.30-5.50) M/uL Hgb 7.2 L (12.0-15.0) g/dL Hct 21.8 L (36.0-48.0) % MCV 85 (80-98) fL MCH 28 (27-31) pg MCHC 33 (32-36) % Plt Count 194 (150-400) K/uL Sodium 131 L (140-148) mmol/L Potassium 4.0 (3.6-5.2) mmol/L Chloride 98 L (100-108) mmol/L Carbon Dioxide 23 (21-32) mmol/L Anion Gap 14.0 (5.0-14.0) mmol/L BUN 32 H (7-18) mg/dL Creatinine 1.1 H (0.6-1.0) mg/dL Est Cr Clr Drug Dosing 31.19 mL/min Estimated GFR (MDRD) 48 L (>60) Glucose 148 H (74-106) mg/dL Calcium 8.0 L (8.5-10.1) mg/dL Blood Type O POSITIVE Gel Antibody Screen Negative Crossmatch See Detail Med Orders - Current: Current Medications Acetaminophen (Tylenol) 650 mg PO Q4H PRN PRN Reason: Pain (Mild 1-3)/fever Last Admin: 01/11/20 00:31 Dose: 650 mg Aspirin (Halfprin) 81 mg PO DAILY [facility] Last Admin: 01/11/20 09:42 Dose: 81 mg Hydromorphone HCl (Dilaudid) 0.5 mg IVPUSH Q2H PRN PRN Reason: Pain (severe 7-10) Last Admin: 01/09/20 17:36 Dose: 0.5 mg Sodium Chloride (Normal Saline) 1,000 mls @ 100 mls/hr IV ASDIRECTED [facility] Last Admin: 01/11/20 08:16 Dose: 100 mls/hr Lorazepam (Ativan) 0.5 mg PO Q4H PRN PRN Reason: Anxiety Lorazepam (Ativan) 0.5 mg IVPUSH Q4H PRN PRN Reason: Nausea/Vomiting Magnesium Hydroxide (Milk Of Magnesia) 30 ml PO Q12H PRN PRN Reason: Constipation Melatonin (Melatonin) 9 mg PO BEDTIME [facility] Last Admin: 01/10/20 20:03 Dose: 9 mg Metoprolol Tartrate (Lopressor) 12.5 mg PO BID [facility] Last Admin: 01/11/20 09:42 Dose: 12.5 mg Ondansetron HCl (Zofran Odt) 4 mg PO Q6H PRN PRN Reason: Nausea able to take PO Last Admin: 01/10/20 12:33 Dose: 4 mg Ondansetron HCl (Zofran) 4 mg IV Q6H PRN PRN Reason: Nausea/Vomiting Ramipril (Altace) 5 mg PO DAILY [facility] Last Admin: 01/11/20 09:40 Dose: 5 mg Senna/Docusate Sodium (Senna Plus) 1 tab PO BID PRN PRN Reason: Constipation Sotalol HCl (Betapace) 80 mg PO BID [facility] Last Admin: 01/11/20 09:42 Dose: 80 mg Thyroid ([place] Thyroid) 240 mg PO DAILY [facility] Last Admin: 01/11/20 09:41 Dose: 240 mg Tramadol HCl (Ultram) 50 mg PO Q6H PRN PRN Reason: Pain (moderate 4-6) Discontinued Medications Bupivacaine HCl (Marcaine 0.5%) Confirm Administered Dose 30 ml .ROUTE .[facility]K-MED ONE Stop: 01/10/20 07:37 Dexamethasone (Dexamethasone) Confirm Administered Dose 4 mg .ROUTE .[facility] ONE Stop: 01/10/20 09:07 Ephedrine Sulfate (Ephedrine Sulfate) Confirm Administered Dose 50 mg .ROUTE .[facility] ONE Stop: 01/10/20 09:34 Fentanyl (Sublimaze) Confirm Administered Dose 250 mcg .ROUTE .[facility] ONE Stop: 01/10/20 09:05 Glycopyrrolate (Robinul) Confirm Administered Dose 1 mg .ROUTE .[facility] ONE Stop: 01/10/20 09:07 Hydromorphone HCl (Dilaudid) 0.5 mg IVPUSH ONETIME ONE Stop: 01/09/20 15:29 Last Admin: 01/09/20 15:32 Dose: 0.5 mg Sodium Chloride (Normal Saline) 1,000 mls @ 250 mls/hr IV ASDIRECTED [facility] Last Admin: 01/09/20 15:32 Dose: 250 mls/hr Phytonadione 5 mg/ Sodium (Chloride) 50.5 mls @ 100 mls/hr IV NOW ONE Stop: 01/09/20 16:33 Last Admin: 01/09/20 16:08 Dose: 100 mls/hr Sodium Chloride (Normal Saline) 1,000 mls @ 100 mls/hr IV ASDIRECTED [facility] Last Admin: 01/11/20 00:28 Dose: 75 mls/hr Cefazolin Sodium/Dextrose 2 gm (/ Premix) 50 mls @ 100 mls/hr IV ONETIME ONE Stop: 01/10/20 09:29 Last Admin: 01/10/20 08:58 Dose: 100 mls/hr Lactated Ringer's (Ringers, Lactated) Confirm Administered Dose 1,000 mls @ as directed .ROUTE .[facility] ONE Stop: 01/10/20 09:18 Sodium Chloride (Normal Saline) 250 mls @ 250 mls/hr IV ONETIME ONE Stop: 01/11/20 03:37 Last Admin: 01/11/20 02:46 Dose: 250 mls/hr Neostigmine Methylsulfate (Neostigmine) Confirm Administered Dose 5 mg .ROUTE .[facility] ONE Stop: 01/10/20 09:07 Ondansetron HCl (Zofran) 4 mg IVPUSH ONETIME ONE Stop: 01/09/20 15:28 Last Admin: 01/09/20 15:32 Dose: 4 mg Ondansetron HCl (Zofran) Confirm Administered Dose 4 mg .ROUTE .[facility] ONE Stop: 01/10/20 09:07 Oxycodone HCl (Oxycodone) 5 - 10 mg PO Q4H PRN PRN Reason: Pain Last Admin: 01/11/20 00:31 Dose: 10 mg Povidone Iodine (Betadine 10% Soln) Confirm Administered Dose 1 ml .ROUTE .STK- MED ONE Stop: 01/10/20 07:37 Propofol (Diprivan 20 Ml) Confirm Administered Dose 200 mg .ROUTE .STK-MED ONE Stop: 01/10/20 09:07 Rocuronium [place] (Zemuron) Confirm Administered Dose 50 mg .ROUTE .STK-MED ONE Stop: 01/10/20 09:07 Scopolamine (Transderm-Scop) Confirm Administered Dose 1.5 mg .ROUTE .STK-MED ONE Stop: 01/10/20 09:07 - Exam Wound/Incisions: Dressing Dry and Intact General: Alert, Oriented Extremities: Leg Pain Skin: Warm, Dry Psy/Mental Status: Alert, Normal Affect Physical Findings Comment:: dressing and brace in place, minimal distal edema Sepsis Event Note - Evaluation Sepsis Screening Result: No Definite Risk - Focused Exam Vital Signs: Vital Signs Temp Temp Pulse Pulse Resp BP BP 01/11/20 15:00 36.9 C 73 18 96/46 L 01/11/20 14:38 36.4 C 73 16 100/68 01/11/20 14:27 36.7 C 54 L 16 84/64 L 01/11/20 14:18 36.7 C 66 16 82/62 L 01/11/20 13:47 36.4 C 58 L 16 100/71 01/11/20 13:25 36.4 C 59 L 16 86/47 L 01/11/20 12:38 37.0 C 35 L 16 100/77 01/11/20 12:15 36.7 C 35 L 16 92/68 01/11/20 12:03 37.0 C 35 L 16 92/56 L 01/11/20 11:59 36.7 C 63 97/56 L 01/11/20 11:50 85/57 L 01/11/20 11:48 36.7 C 59 L 15 01/11/20 09:42 68 111/55 L 01/11/20 09:40 111/55 L 01/11/20 09:18 36.4 C 68 16 111/55 L Pulse Ox 01/11/20 15:00 94 L 01/11/20 14:38 95 01/11/20 14:27 100 01/11/20 14:18 100 01/11/20 13:47 98 01/11/20 13:25 99 01/11/20 12:38 97 01/11/20 12:15 98 01/11/20 12:03 97 01/11/20 11:59 95 01/11/20 11:50 01/11/20 11:48 01/11/20 09:42 01/11/20 09:40 01/11/20 09:18 100 Date Exam was Performed: 01/11/20 Time Exam was Performed: 16:12 - Problem List & Annotations (1) Fracture of distal femur SNOMED Code(s): 422696751 Code(s): S72.409A - UNSP FRACTURE OF LOWER END OF UNSP FEMUR, INIT FOR CLOS FX Status: Acute Current Visit: Yes Annotation/Comment:: Displaced supracondylar fracture Qualifiers: Encounter type: initial encounter Fracture type: closed Fracture morphology: unspecified fracture morphology Laterality: right Qualified Code (s): S72.401A - Unspecified fracture of lower end of right femur, initial encounter for closed fracture (2) Postoperative anemia due to acute blood loss SNOMED Code(s): 41988730761387206 Code(s): D62 - ACUTE POSTHEMORRHAGIC ANEMIA Status: Acute Current Visit: Yes - Problem List Review Problem List Initiated/Reviewed/Updated: Yes - My Orders Last 24 Hours: Active Orders 24 hr Category Date Time Status Regular Diet [DIET] Diet 01/10/20 Dinner Active BASIC METABOLIC PANEL,BMP [CHEM] Timed Lab 01/12/20 05:00 Ordered CBC W/O DIFF,HEMOGRAM [HEME] Timed (1) Lab 01/12/20 05:00 Ordered traMADol [Ultram] Med 01/11/20 10:35 Active 50 mg PO Q6H PRN Transfuse Red Blood Cells [COMM] Routine Oth 01/11/20 08:57 Ordered Medication Orders Acetaminophen (Tylenol) 650 mg PO Q4H PRN PRN Reason: Pain (Mild 1-3)/fever Last Admin: 01/11/20 00:31 Dose: 650 mg Admin: 01/10/20 19:59 Dose: 650 mg Aspirin (Halfprin) 81 mg PO DAILY [facility] Last Admin: 01/11/20 09:42 Dose: 81 mg Admin: 01/10/20 14:10 Dose: Not Given Hydromorphone HCl (Dilaudid) 0.5 mg IVPUSH Q2H PRN PRN Reason: Pain (severe 7-10) Last Admin: 01/09/20 17:36 Dose: 0.5 mg Sodium Chloride (Normal Saline) 1,000 mls @ 100 mls/hr IV ASDIRECTED [facility] Last Admin: 01/11/20 08:16 Dose: 100 mls/hr Infusion: 01/11/20 00:09 Dose: 100 mls/hr Admin: 01/10/20 14:09 Dose: 100 mls/hr Lorazepam (Ativan) 0.5 mg PO Q4H PRN PRN Reason: Anxiety Lorazepam (Ativan) 0.5 mg IVPUSH Q4H PRN PRN Reason: Nausea/Vomiting Magnesium Hydroxide (Milk Of Magnesia) 30 ml PO Q12H PRN PRN Reason: Constipation Melatonin (Melatonin) 9 mg PO BEDTIME [facility] Last Admin: 01/10/20 20:03 Dose: 9 mg Admin: 01/09/20 20:33 Dose: 9 mg Metoprolol Tartrate (Lopressor) 12.5 mg PO BID [facility] Last Admin: 01/11/20 09:42 Dose: 12.5 mg Admin: 01/10/20 20:07 Dose: 12.5 mg Admin: 01/10/20 09:03 Dose: 12.5 mg Admin: 01/09/20 20:33 Dose: 12.5 mg Ondansetron HCl (Zofran Odt) 4 mg PO Q6H PRN PRN Reason: Nausea able to take PO Last Admin: 01/10/20 12:33 Dose: 4 mg Admin: 01/09/20 20:32 Dose: 4 mg Ondansetron HCl (Zofran) 4 mg IV Q6H PRN PRN Reason: Nausea/Vomiting Ramipril (Altace) 5 mg PO DAILY [facility] Last Admin: 01/11/20 09:40 Dose: 5 mg Admin: 01/10/20 14:10 Dose: Not Given Senna/Docusate Sodium (Senna Plus) 1 tab PO BID PRN PRN Reason: Constipation Sotalol HCl (Betapace) 80 mg PO BID [facility] Last Admin: 01/11/20 09:42 Dose: 80 mg Admin: 01/10/20 20:07 Dose: Not Given Admin: 01/10/20 14:10 Dose: Not Given Admin: 01/09/20 20:31 Dose: 80 mg Thyroid ([place] Thyroid) 240 mg PO DAILY [facility] Last Admin: 01/11/20 09:41 Dose: 240 mg Admin: 01/10/20 14:01 Dose: 240 mg Tramadol HCl (Ultram) 50 mg PO Q6H PRN PRN Reason: Pain (moderate 4-6) - Assessment Assessment (Free Text/Narrative):: Stable post-operatively, pain well controlled - not taking much of anything for pain, some confusion last night secondary to Scopolamine patch, cleared now, Hgb down to 7.5 this am, tolerated being up in chair for about 2 hours today, max assist required for transfer - Plan Plan (Free Text/Narrative):: Continue OT/PT TTWB on right, change dressing tomorrow, D/C [place] in am, OK to resume Coumadin, if hemodynamically stable and H/H stable OK from Ortho standpoint to transfer to [facility] tomorrow
--- NOTE | 2020-01-11 20:48 | OR ---
DATE OF PROCEDURE: 01/10/2020 SURGEON: Perfecto Perez MD PREOPERATIVE DIAGNOSIS: Displaced right supracondylar femur fracture. POSTOPERATIVE DIAGNOSIS: Displaced right supracondylar femur fracture. PROCEDURE: Open reduction and internal fixation of right distal femur using Synthes distal femoral locking plate. ANESTHESIA: General. INDICATIONS: Gloria is an 84-year-old female, who sustained a ground-level fall while at home when she tripped over an object on the floor, landing onto her right leg and striking her forehead. She presented to the emergency department, where she was found to have a displaced supracondylar femur fracture. Evaluated for head injury with a negative CT. The patient has history of atrial fibrillation and pacemaker, on Coumadin therapy. She was observed overnight for any closed head injury. Her Coumadin was reversed with vitamin K and taken to the operating room the following morning for open reduction and internal fixation. Risks, benefits, potential complications of the procedure were discussed with the patient and her daughter. DESCRIPTION OF PROCEDURE: After adequate anesthesia was obtained, the patient was placed supine with a tourniquet high on the right thigh. Right leg was prepped and draped in sterile fashion. Leg was exsanguinated and tourniquet inflated to 300 mmHg pressure. Incision was made along the lateral aspect of the femur and curved anteriorly toward the tibial tubercle at the level of the knee joint. This was carried down through the subcutaneous tissues. The fascia tom was divided. Vastus lateralis was elevated anteriorly. Hematoma from within the joint was encountered and this was cleared. 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 The fracture was displaced medially and superiorly. Traction was placed on the leg and a bone hook utilized to manipulate the distal fragment laterally. Some mild comminution was noted over the proximal metaphysis. Distal locking plate was placed over the lateral aspect of the femur and position checked using fluoroscopy. This was temporarily held in place with a [place] clamp. Mild comminution was also noted on the lateral cortex of the distal fragment. With the plate held against the shaft with the clamp, distal locking screws were placed. Additional fixation was then obtained proximal to the fracture using 4.5 cortical screws. Excellent purchase was obtained with the screws proximally. Final position was confirmed on AP and lateral images. Wound was then irrigated. Vastus lateralis was allowed to fall back into position and the IT band was then closed in a running locking fashion with 0 Vicryl. Skin was closed with 2-0 Vicryl and a running 3-0 Monocryl. Steri-Strips were applied. Light compressive dressing was then placed. The leg was placed into a hinged knee brace, locked in extension. The patient tolerated the procedure quite well. There were no complications. She was taken from the operating room in a stable condition. Perfecto Perez MD /[id number] MTDD
[2020-01-11] MEDS: Melatonin 3 MG Tab PO SCH (21:06)
[2020-01-12] MEDS: Sodium Chloride 0.9% 1,000 ML IV SCH (05:58)
[2020-01-12] MEDS ORDERED: Sodium Chloride 0.9% 250 ML IV ONE (06:00)
[2020-01-12] MEDS ORDERED: Warfarin 2.5 MG Tab PO ONE (08:00)
[2020-01-12] MEDS: Sotalol 80 MG Tab PO SCH (08:44)
[2020-01-12] MEDS: Aspirin 81 MG Tab.EC PO SCH (08:45)
[2020-01-12] MEDS: Metoprolol Tartrate 25 MG Tab PO SCH (08:45)
[2020-01-12 10:46] VITALS: BP 112/54; PULSE 60
[2020-01-12] MEDS: Acetaminophen 325 MG Tab PO PRN (11:21)
--- NOTE | 2020-01-12 12:52 | PCM.DCSUM1 ---
Discharge Summary - Hospital Course Brief History: 84-year-old female with history of chronic atrial fibrillation with systemic anticoagulation who presented with severe right knee pain and swelling after a fall at home. She was admitted for management of a distal right femur fracture. Diagnosis: Stroke: No - Discharge Data Discharge Date: 01/12/20 Discharge Disposition: DC/Tfer to SNF 03 Condition: Good - Referral to Home Health Primary Care Physician: PCP None - Discharge Diagnosis/Problem(s) (1) Fracture of distal femur SNOMED Code(s): 873033709 ICD Code: S72.409A - UNSP FRACTURE OF LOWER END OF UNSP FEMUR, INIT FOR CLOS FX Status: Acute Current Visit: Yes Problem Details: Displaced supracondylar fracture Qualifiers: Encounter type: initial encounter Fracture type: closed Fracture morphology: unspecified fracture morphology Laterality: right Qualified Code (s): S72.401A - Unspecified fracture of lower end of right femur, initial encounter for closed fracture (2) Contusion of forehead SNOMED Code(s): 572522856 ICD Code: S00.83XA - CONTUSION OF OTHER PART OF HEAD, INITIAL ENCOUNTER Status: Acute Current Visit: Yes Qualifiers: Encounter type: initial encounter Qualified Code(s): S00.83XA - Contusion of other part of head, initial encounter (3) Atrial fibrillation SNOMED Code(s): 76085449 ICD Code: I48.91 - UNSPECIFIED ATRIAL FIBRILLATION Status: Chronic Current Visit: Yes Qualifiers: Atrial fibrillation type: paroxysmal Qualified Code(s): I48.0 - Paroxysmal atrial fibrillation (4) Anemia due to blood loss, acute SNOMED Code(s): 443037776 ICD Code: D62 - ACUTE POSTHEMORRHAGIC ANEMIA Status: Acute Current Visit : Yes - Patient Summary/Data Operative Procedure(s) Performed: Dr Perfecto Perez performed an open reduction and internal fixation of a distal right femur fracture Consults: Consultations 01/09/20 17:01 Consult to Physician [CONS] Routine Consulting Provider: Perfecto Perez Courtesy Call Completed to Consulting Physician: Yes Reason for Consult: right distal femur fracture Person Notified: POWDER HAND Date Notified: 01/09/20 Special Instructions: surgery 01/0901/10/20 11:23 Consult to Case Management/Group Social Worker [CONS] Routine Comment: Physician Instructions: Service(s) to be Consulted: Case Management Reason for Consult: Plan for Discharge Consult to Occupational Therapy [OT Evaluation and Treatment] [CONS] Routine Please Evaluate and Treat. OT Reason for Consult: ADL's Special Instructions: ADLs and adaptive devices This query below is only for informational purposes and is not editable. Admission Diagnosis/Problem: Fracture of femur PT Evaluation and Treatment [CONS] Routine Please Evaluate and Treat. PT Reason for Consult: Post op Ortho Surgery Special Instructions: TTWB on right This query below is only for informational purposes and is not editable. Admission Diagnosis/Problem: Fracture of femur Hospital Course: Gloria presented to the emergency room with severe right knee pain and swelling after tripping and falling at home. Imaging in the emergency room revealed evidence for a displaced distal femur fracture on the right. Her INR was therapeutic. She received IV vitamin K and was admitted the hospital for pain control and surgical intervention. There were no acute issues overnight following admission. Next morning she had an open reduction and internal fixation procedure to repair the distal femur fracture. The surgery itself was uneventful. Overnight after surgery the patient had some difficulty with both little urine output and confusion. The urine output did improve with IV fluid boluses. Her confusion improved after the scopolamine patch was discontinued. Postoperatively her hemoglobin did fall as low as 7.2. She did receive 1 unit of blood via transfusion. Hemoglobin has improved to greater than 8. Vital signs have been stable. Pain has been fairly well controlled though she has been reluctant to use pain medications because she does not want to have difficulty with confusion. She has been working with physical therapy. Not she would benefit from subacute rehab to help recover after the fracture. She is stable and safe for discharge to the senior care at this time. She will be going back on her warfarin but we will not bridge with her recent bleeding difficulties and anemia. Her blood pressures have been normal or on the low side of normal during the hospital stay so we did at least temporarily discontinue her GAMALIEL inhibitor. She will remain on her beta-jodi and sotalol. - Patient Instructions Diet: Regular Diet as Tolerated Activity: Partial Weight Bearing (toe touch weight bearing right leg ) Showering/Bathing: May Shower Notify Provider of: Fever, Increased Pain, Nausea and/or Vomiting Other/Special Instructions: 1. You were in the hospital for management of a traumatic right distal femur fracture. Your fracture did require surgical management with an open reduction and internal fixation. For the next several weeks you are only able to bear minimal weight on the right foot toe-touch weightbearing. You should follow-up with Dr. Perfecto Perez as scheduled. I have scheduled acetaminophen to help reduce your pain and you can use tramadol as needed for breakthrough pain. You did have a fair amount of bleeding because of the fracture and some additional bleeding because of the surgery. Your condition did require a blood transfusion. I recommend that you take an iron supplement twice daily for the next month to replenish your iron stores in your body. 2. Stop taking your ramipril - your blood pressure was low during the hospital stay so we did stop this medication at least for the time being. If your blood pressure rises it may need to be restarted. 3. Referral to PT and OT for strengthening after a right distal femur fracture. 4. Code status - FULL CODE. 5. INR on Wednesday and then per [facility]. Goal INR 2-3 - Discharge Plan *PRESCRIPTION DRUG MONITORING PROGRAM REVIEWED*: Not Applicable *COPY OF PRESCRIPTION DRUG MONITORING REPORT IN PATIENT LETHA: Not Applicable Prescriptions/Med Rec: Acetaminophen [Mapap] 1,000 mg PO TID #180 tablet Ferrous Sulfate 325 mg PO BIDAC #60 tablet LORazepam [Lorazepam] 0.5 mg PO Q4H PRN #30 tablet PRN Reason: Anxiety Sennosides/Docusate Sodium [Dok Plus Tablet] 1 each PO DAILY #30 tablet traMADol [Ultram] 50 mg PO Q6H PRN #45 tablet PRN Reason: Pain Home Medications: Home Meds Aspirin [Halfprin] 81 mg PO DAILY 11/23/15 [History] Sotalol HCl [Sotalol] 80 mg PO BID 11/23/15 [History] Metoprolol Tartrate 12.5 mg PO BID 02/14/16 [History] Nitroglycerin [Nitrostat] 0.4 mg SL ASDIRECTED 02/14/16 [History] Warfarin [Coumadin] 6.25 mg PO DAILY 03/28/18 [History] Thyroid,Pork [Nature-Throid] 1.5 cap PO DAILY 02/25/19 [History] Multivitamin [Multi-Vitamin Daily] 1 tab PO DAILY 01/09/20 [History] Acetaminophen [Mapap] 1,000 mg PO TID #180 tablet 01/12/20 [Rx] Ferrous Sulfate 325 mg PO BIDAC #60 tablet 01/12/20 [Rx] LORazepam [Lorazepam] 0.5 mg PO Q4H PRN #30 tablet 01/12/20 [Rx] Sennosides/Docusate Sodium [Dok Plus Tablet] 1 each PO DAILY #30 tablet [Rx] traMADol [Ultram] 50 mg PO Q6H PRN #45 tablet 01/12/20 [Rx] Oxygen Therapy Mode: Room Air Referrals: Perfecto Perez MD [Physician] - 01/23/20 11:15 am (Please arrive 15 minutes early to register for appointment and register at the ER desk.) - Discharge Summary/Plan Comment DC Time >30 min.: Yes (40-new senior care discharge) - Patient Data Vitals - Most Recent: Last Vital Signs Temp 36.9 C 01/12/20 10:43 Pulse 60 01/12/20 10:43 Resp 16 01/12/20 10:43 BP 112/54 L 01/12/20 10:43 Pulse Ox 96 01/12/20 10:43 Weight - Most Recent: 58.967 kg I&O - Last 24 hours: Intake & Output 01/11/20 01/12/20 01/12/20 22:59 06:59 14:59 Intake Total 1146 2153 720 Output Total 60 250 75 Balance 1086 1903 645 Lab Results - Last 24 hrs: Laboratory Results - last 24 hr 01/10/20 01/12/20 01/12/20 Range/Units 04:20 06:01 06:01 WBC 11.5 H (4.5-11.0) K/uL RBC 3.15 L (3.30-5.50) M/uL Hgb 8.2 L (12.0-15.0) g/dL Hct 26.3 L (36.0-48.0) % MCV 84 (80-98) fL MCH 26 L (27-31) pg MCHC 31 L (32-36) % Plt Count 183 (150-400) K/uL Sodium 130 L (140-148) mmol/L Potassium 4.1 (3.6-5.2) mmol/L Chloride 99 L (100-108) mmol/L Carbon Dioxide 23 (21-32) mmol/L Anion Gap 12.1 (5.0-14.0) mmol/L BUN 37 H (7-18) mg/dL Creatinine 1.2 H (0.6-1.0) mg/dL Est Cr Clr Drug Dosing 28.59 mL/min Estimated GFR (MDRD) 43 L (>60) Glucose 123 H (74-106) mg/dL Calcium 8.1 L (8.5-10.1) mg/dL Crossmatch See Detail Med Orders - Current: Current Medications Acetaminophen (Tylenol) 650 mg PO Q4H PRN PRN Reason: Pain (Mild 1-3)/fever Last Admin: 01/12/20 11:21 Dose: 650 mg Aspirin (Halfprin) 81 mg PO DAILY [facility] Last Admin: 01/12/20 08:45 Dose: 81 mg Hydromorphone HCl (Dilaudid) 0.5 mg IVPUSH Q2H PRN PRN Reason: Pain (severe 7-10) Last Admin: 01/09/20 17:36 Dose: 0.5 mg Sodium Chloride (Normal Saline) 1,000 mls @ 100 mls/hr IV ASDIRECTED [facility] Last Admin: 01/12/20 05:58 Dose: 100 mls/hr Lorazepam (Ativan) 0.5 mg PO Q4H PRN PRN Reason: Anxiety Lorazepam (Ativan) 0.5 mg IVPUSH Q4H PRN PRN Reason: Nausea/Vomiting Magnesium Hydroxide (Milk Of Magnesia) 30 ml PO Q12H PRN PRN Reason: Constipation Melatonin (Melatonin) 9 mg PO BEDTIME [facility] Last Admin: 01/11/20 21:06 Dose: 9 mg Metoprolol Tartrate (Lopressor) 12.5 mg PO BID [facility] Last Admin: 01/12/20 08:45 Dose: 12.5 mg Ondansetron HCl (Zofran Odt) 4 mg PO Q6H PRN PRN Reason: Nausea able to take PO Last Admin: 01/10/20 12:33 Dose: 4 mg Ondansetron HCl (Zofran) 4 mg IV Q6H PRN PRN Reason: Nausea/Vomiting Ramipril (Altace) 5 mg PO DAILY [facility] Last Admin: 01/12/20 08:43 Dose: 5 mg Senna/Docusate Sodium (Senna Plus) 1 tab PO BID PRN PRN Reason: Constipation Last Admin: 01/12/20 08:53 Dose: 1 tab Sotalol HCl (Betapace) 80 mg PO BID [facility] Last Admin: 01/12/20 08:44 Dose: 80 mg Thyroid (Bee Thyroid) 240 mg PO DAILY [facility] Last Admin: 01/12/20 08:43 Dose: 240 mg Tramadol HCl (Ultram) 50 mg PO Q6H PRN PRN Reason: Pain (moderate 4-6) Last Admin: 01/12/20 08:13 Dose: 50 mg Discontinued Medications Bupivacaine HCl (Marcaine 0.5%) Confirm Administered Dose 30 ml .ROUTE .STK-MED ONE Stop: 01/10/20 07:37 Dexamethasone (Dexamethasone) Confirm Administered Dose 4 mg .ROUTE .STK-MED ONE Stop: 01/10/20 09:07 Ephedrine Sulfate (Ephedrine Sulfate) Confirm Administered Dose 50 mg .ROUTE .STK-MED ONE Stop: 01/10/20 09:34 Fentanyl (Sublimaze) Confirm Administered Dose 250 mcg .ROUTE .STK-MED ONE Stop: 01/10/20 09:05 Glycopyrrolate (Robinul) Confirm Administered Dose 1 mg .ROUTE .STK-MED ONE Stop: 01/10/20 09:07 Hydromorphone HCl (Dilaudid) 0.5 mg IVPUSH ONETIME ONE Stop: 01/09/20 15:29 Last Admin: 01/09/20 15:32 Dose: 0.5 mg Sodium Chloride (Normal Saline) 1,000 mls @ 250 mls/hr IV ASDIRECTED [facility] Last Admin: 01/09/20 15:32 Dose: 250 mls/hr Phytonadione 5 mg/ Sodium (Chloride) 50.5 mls @ 100 mls/hr IV NOW ONE Stop: 01/09/20 16:33 Last Admin: 01/09/20 16:08 Dose: 100 mls/hr Sodium Chloride (Normal Saline) 1,000 mls @ 100 mls/hr IV ASDIRECTED [facility] Last Admin: 01/11/20 00:28 Dose: 75 mls/hr Cefazolin Sodium/Dextrose 2 gm (/ Premix) 50 mls @ 100 mls/hr IV ONETIME ONE Stop: 01/10/20 09:29 Last Admin: 01/10/20 08:58 Dose: 100 mls/hr Lactated Ringer's (Ringers, Lactated) Confirm Administered Dose 1,000 mls @ as directed .ROUTE .STK-MED ONE Stop: 01/10/20 09:18 Sodium Chloride (Normal Saline) 250 mls @ 250 mls/hr IV ONETIME ONE Stop: 01/11/20 03:37 Last Admin: 01/11/20 02:46 Dose: 250 mls/hr Sodium Chloride (Normal Saline) 250 mls @ 250 mls/hr IV ONETIME ONE Stop: 01/12/20 06:59 Last Admin: 01/12/20 08:08 Dose: Not Given Neostigmine Methylsulfate (Neostigmine) Confirm Administered Dose 5 mg .ROUTE .STK-MED ONE Stop: 01/10/20 09:07 Ondansetron HCl (Zofran) 4 mg IVPUSH ONETIME ONE Stop: 01/09/20 15:28 Last Admin: 01/09/20 15:32 Dose: 4 mg Ondansetron HCl (Zofran) Confirm Administered Dose 4 mg .ROUTE .STK-MED ONE Stop: 01/10/20 09:07 Oxycodone HCl (Oxycodone) 5 - 10 mg PO Q4H PRN PRN Reason: Pain Last Admin: 01/11/20 00:31 Dose: 10 mg Povidone Iodine (Betadine 10% Soln) Confirm Administered Dose 1 ml .ROUTE .STK- MED ONE Stop: 01/10/20 07:37 Propofol (Diprivan 20 Ml) Confirm Administered Dose 200 mg .ROUTE .STK-MED ONE Stop: 01/10/20 09:07 Rocuronium [place] (Zemuron) Confirm Administered Dose 50 mg .ROUTE .STK-MED ONE Stop: 01/10/20 09:07 Scopolamine (Transderm-Scop) Confirm Administered Dose 1.5 mg .ROUTE .STK-MED ONE Stop: 01/10/20 09:07 Warfarin Sodium (Coumadin) 7.5 mg PO ONETIME ONE Stop: 01/12/20 08:01 Last Admin: 01/12/20 08:42 Dose: 7.5 mg *Q Meaningful Use (DIS) - VTE *Q VTE Pharmacological Contraindications *Q: Patient Scheduled Surgery
== END 2020-01-12 14:00 | DRG 481 ==
LOC: JP.ED 13:56 → JP.MS 16:25
PROVIDERS: ADMIT Internal Medicine; ATTEND Internal Medicine
PROC: 0QSB04Z Reposition Right Lower Femur with Internal Fixation Device, Open Approach (ICD-10-PCS; principal; 2020-01-10)
DX: S72.401A Unspecified fracture of lower end of right femur, initial encounter for closed fracture (principal); S72.451A Displaced supracondylar fracture without intracondylar extension of lower end of right femur, initial encounter for closed fracture; W01.0XXA Fall on same level from slipping, tripping and stumbling without subsequent striking against object, initial encounter; I48.91 Unspecified atrial fibrillation; H54.7 Unspecified visual loss; I48.20 Chronic atrial fibrillation, unspecified; D62 Acute posthemorrhagic anemia; S00.83XA Contusion of other part of head, initial encounter; G47.30 Sleep apnea, unspecified; M11.9 Crystal arthropathy, unspecified; I10 Essential (primary) hypertension; E03.9 Hypothyroidism, unspecified; M19.90 Unspecified osteoarthritis, unspecified site; M54.9 Dorsalgia, unspecified; G89.29 Other chronic pain; F41.9 Anxiety disorder, unspecified; E05.90 Thyrotoxicosis, unspecified without thyrotoxic crisis or storm; Z79.890 Hormone replacement therapy; Z79.01 Long term (current) use of anticoagulants; Z88.5 Allergy status to narcotic agent; Z88.8 Allergy status to other drugs, medicaments and biological substances; Z79.82 Long term (current) use of aspirin; Z79.899 Other long term (current) drug therapy; Z95.0 Presence of cardiac pacemaker; Z86.73 Personal history of transient ischemic attack (TIA), and cerebral infarction without residual deficits; Z90.49 Acquired absence of other specified parts of digestive tract; Z96.659 Presence of unspecified artificial knee joint; W01.10XA Fall on same level from slipping, tripping and stumbling with subsequent striking against unspecified object, initial encounter; Y92.009 Unspecified place in unspecified non-institutional (private) residence as the place of occurrence of the external cause
CPT/HCPCS: 36415; 70450; 71045 ×2; 73552 ×2; 73560 ×2; 80053; 85025; 85610; 93005; 96361; 96365; 96375; 99284; 99285; J1170; J2405; J3430; J7030; J7050; 36430; 73564-RT; 76000; 80048; 81001; 85027; 86850; 86900; 86901; 86920; 86922; 93010; 97110-GP; 97161-GP; 97165-GO; 97530-GP; A9270-GY; C1713; J0690; J1100; J2704; J2710; J3010; J3490; J7120; P9016

== ENCOUNTER → 2020-05-23 | Day surgery (SDC) | payer MEDICARE ==
[~2020-05-23] MED LIST: Acetaminophen 500 MG Tab PO ONE; Bupivacaine 0.5% 50 ML MDV ONE; Dextrose 5%-Lactated Ringers 1,000 ML IV SCH; Lidocaine 1% with EPINEPHrine 1:100,000 50 ML MDV ONE; Propofol 200 MG/20 ML SDV ONE; ceFAZolin 1 GM in Premix Bag 1 BAG IV ONE; fentaNYL 100 MCG/2 ML SDV ONE
[2020-05-23 13:52] VITALS: PULSE 86
[2020-05-23 14:00] VITALS: BP 136/67
--- NOTE | 2020-05-27 12:16 | OR ---
DATE OF PROCEDURE: 05/23/2020 SURGEON: Wilfred De La Garza MD PREOPERATIVE DIAGNOSIS: Infected epidermoid cyst, right axilla. POSTOPERATIVE DIAGNOSIS: Infected epidermoid cyst, right axilla with deep abscess extending between pectoralis major and chest wall. OPERATIVE PROCEDURES: Exploration of right axilla with: 1. Drainage of deep abscess extending underneath the pectoralis major muscle overlying chest wall (29035). 2. Excision of associated infected epidermoid cyst (76132). ANESTHESIA: Local plus IV sedation. INDICATIONS FOR PROCEDURE: This is an 85-year-old presenting with what appears to be an infected epidermoid cyst in the right axilla. Plan is to proceed with drainage and excision of this. Potential risks including bleeding, infection, injury to underlying nerves in the area, possible recurrence of the problem were gone over and the patient wishes to proceed. DETAILS OF PROCEDURE: The patient was taken to the operating room and IV sedation administered. The right axilla and surrounding areas were prepped and draped. Elliptical incision around the lesion was then made and carried down through the skin and subcutaneous tissue. The deep extent of this appeared to be complicated by the abscess formation which extended roughly a fingerbreadth up underneath the pectoralis major muscle and overlying the chest wall, i.e., deep chest wall abscess was encountered. Cultures of this were obtained. The epidermoid cyst itself was then excised and the lesion plus margin length was measured at 4.0 cm. The remaining cyst wall which was then excised and/or ablated with electrocautery, and at that point, the deep abscess cavity as well as more superficial components were packed with iodoform gauze. The patient received mixture of 0.5% Marcaine and lidocaine for anesthetic locally and IV sedation and tolerated the procedure well. She was taken to the recovery room in satisfactory condition. She will be finishing off her antibiotic course which was started preoperatively. Wilfred De La Garza MD /[id number]
== END ==
LOC: JP.SDS 09:06
PROVIDERS: ATTEND Surgery
DX: L02.411 Cutaneous abscess of right axilla (principal); L72.0 Epidermal cyst; B95.4 Other streptococcus as the cause of diseases classified elsewhere; B96.89 Other specified bacterial agents as the cause of diseases classified elsewhere; G47.33 Obstructive sleep apnea (adult) (pediatric); E03.9 Hypothyroidism, unspecified; E11.9 Type 2 diabetes mellitus without complications; I48.91 Unspecified atrial fibrillation; F41.9 Anxiety disorder, unspecified; Z20.828 Contact with and (suspected) exposure to other viral communicable diseases; Z01.812 Encounter for preprocedural laboratory examination; Z91.040 Latex allergy status
CPT/HCPCS: 11404; 21501; 36415; 85610; 87070; 87075; 87077; 87186; 87205; A9270; J0690; J2704; J3010; J3490; J7121; U0002; 88304; 88312

== ENCOUNTER 2020-11-05 05:42 | Day surgery (SDC) | payer MEDICARE ==
[2020-11-05] MEDS ORDERED: Acetaminophen 500 MG Tab PO ONE (05:43)
[2020-11-05] MEDS ORDERED: Dextrose 5%-Lactated Ringers 1,000 ML IV SCH (05:45)
[2020-11-05] MEDS ORDERED: Lidocaine 1% with EPINEPHrine 1:100,000 50 ML MDV ONE (06:35)
[2020-11-05] MEDS ORDERED: Bupivacaine 0.5% 50 ML MDV ONE (06:35)
[2020-11-05] MEDS ORDERED: Meropenem 500 MG in Sodium Chloride 0.9% 50 ML IV ONE (07:00)
[2020-11-05] MEDS ORDERED: Rocuronium 50 MG/5 ML Vial ONE (07:06)
[2020-11-05] MEDS ORDERED: Dexamethasone 4 MG/ML SDV ONE (07:06)
[2020-11-05] MEDS ORDERED: Neostigmine Methylsulfate 1 MG/ML 5 ML Syringe ONE (07:06)
[2020-11-05] MEDS ORDERED: Ondansetron 4 MG/2 ML SDV ONE (07:06)
[2020-11-05] MEDS ORDERED: Succinylcholine 200 MG/10 ML MDV ONE (07:06)
[2020-11-05] MEDS ORDERED: fentaNYL 250 MCG/5 ML SDV ONE (07:06)
[2020-11-05] MEDS ORDERED: Glycopyrrolate 0.2 MG/ML 5 ML MDV ONE (07:06)
[2020-11-05] MEDS ORDERED: Propofol 200 MG/20 ML SDV ONE (07:06)
[2020-11-05] MEDS ORDERED: Naloxone 0.4 MG/ML SDV ONE (08:10)
[2020-11-05 09:54] VITALS: BP 113/63; PULSE 55
--- NOTE | 2020-11-10 13:37 | OR ---
DATE OF PROCEDURE: 11/05/2020 SURGEON: Wilfred De La Garza MD PREOPERATIVE DIAGNOSIS: Infected right axillary mass. POSTOPERATIVE DIAGNOSIS: Infected deep right axillary mass extending into subclavian space. OPERATIVE PROCEDURE: Excision of infected deep right axillary mass extending into subclavian space (82592). ANESTHESIA: General. INDICATIONS FOR PROCEDURE: This is an 85-year-old presenting with recurrence of infected mass in the right axillary area. This was previously excised and now has recurred. The plan is to proceed with excision of this with a general anesthetic. Potential risks including bleeding, infection, injury to vessels or nerves in the area, and possible persistence or recurrence of the process over time were all reviewed, and the patient wishes to proceed. DETAILS OF PROCEDURE: The patient was taken to the operating room, placed in a supine position. After general endotracheal anesthesia was induced, the right arm was placed anteriorly on a sling hanging from a pole to allow adequate exposure of the right axilla. The right axilla and surrounding areas were then prepped and draped. An elliptical incision was then made around the surface of lesion and this was gradually dissected free from the soft tissues. This appeared to be most likely a recurrent infected epidermoid cyst or such. Cultures were obtained as some purulent material was identified. This process continued up into the subclavian space and the entire process measured around 6 cm. All of surface of the lesion appeared to be removed at that point using electrocautery, and the wound was then packed open with iodoform gauze, and a dressing applied. The patient was taken to the recovery room in satisfactory condition. There were no evident complications. Wilfred De La Garza MD /[id number]
== END 2020-11-05 11:04 | disposition home or self-care (01) ==
LOC: JP.SDS 05:42
PROVIDERS: ATTEND Surgery
DX: M79.89 Other specified soft tissue disorders (principal); I48.91 Unspecified atrial fibrillation; I25.10 Atherosclerotic heart disease of native coronary artery without angina pectoris; G47.33 Obstructive sleep apnea (adult) (pediatric); E11.9 Type 2 diabetes mellitus without complications; Z79.01 Long term (current) use of anticoagulants; Z91.040 Latex allergy status; Z88.5 Allergy status to narcotic agent; Z79.899 Other long term (current) drug therapy; Z86.73 Personal history of transient ischemic attack (TIA), and cerebral infarction without residual deficits; Z98.890 Other specified postprocedural states; Z87.891 Personal history of nicotine dependence
CPT/HCPCS: 36415; 80053; 83735; 84100; 85027; 85610; 87070; 87075; 87205; A9270-GY; J0330; J1100; J2185; J2310; J2405; J2704; J2710; J3010; J3490; J7121

== ENCOUNTER 2021-07-18 08:44 | Day surgery (SDC) | payer MEDICARE ==
[~2021-07-18 08:44] MED LIST changes: -Acetaminophen 500 MG Tab PO ONE; -Bupivacaine 0.5% 50 ML MDV ONE; -Dextrose 5%-Lactated Ringers 1,000 ML IV SCH; -Lidocaine 1% with EPINEPHrine 1:100,000 50 ML MDV ONE; -ceFAZolin 1 GM in Premix Bag 1 BAG IV ONE
[2021-07-18] MEDS ORDERED: Lidocaine 1% with EPINEPHrine 1:100,000 50 ML MDV ONE (09:10)
[2021-07-18] MEDS ORDERED: Bupivacaine 0.5% 50 ML MDV ONE (09:10)
[2021-07-18] MEDS ORDERED: Acetaminophen 325 MG Tab PO ONE (09:15)
[2021-07-18] MEDS ORDERED: Diltiazem IR 30 MG Tab PO ONE (09:45)
[2021-07-18] MEDS ORDERED: Dextrose 5%-Lactated Ringers 1,000 ML IV SCH (09:45)
[2021-07-18] MEDS ORDERED: Metoprolol Tartrate 25 MG Tab PO ONE (09:45)
[2021-07-18 09:50] LABS: CORONAVIRUS COVID-19 NAA NEGATIVE (NEGATIVE)
[2021-07-18] MEDS ORDERED: Diltiazem 120 MG Cap.CD PO ONE (10:00)
[2021-07-18] MEDS ORDERED: ceFAZolin 1 GM in Premix Bag 1 BAG IV ONE (10:00)
[2021-07-18] MEDS ORDERED: ceFAZolin 1 GM in Sodium Chloride 0.9% 100 ML IV ONE (10:00)
[2021-07-18] MEDS ORDERED: Sulfamethoxazole/Trimethoprim 800-160 MG Tab PO ONE (13:15)
[2021-07-18 13:52] VITALS: BP 121/70; PULSE 76
--- NOTE | 2021-08-05 08:00 | OR ---
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 OPERATIVE PROCEDURE: Incision and drainage of probable lymphocele, right axilla (55463). ANESTHESIA: Local plus IV sedation. INDICATIONS FOR PROCEDURE: The patient had a problematic wound in the right axilla that has been excised and drained twice. Now, skin has healed over but has gradually enlarged in terms of semi solid fluid collection which is not amenable to aspiration even with an 18- gauge needle. Plan is to proceed with incision and drainage of this. We will attempt placing a Yong-Brooks drain of a small size through the skin lateral to the fluid collection and see if that is adequate to evacuate that. If that would work, that would be the best approach in terms of allowing that to decompress and hopefully heal up with the skin becoming adherent to the deeper soft tissues while the drain is in place. Otherwise, if the fluid is not drainable via the catheter, we will need to make an incision over that to begin the process of secondary healing once again. Potential risks including bleeding and infection, possibility that the procedure may not be successful in terms of adequately controlling the fluid collection was all gone over with the patient and family, and they wished to proceed. DETAILS OF PROCEDURE: The patient was taken to the operating room and placed in a supine position. After IV sedation was administered, the right axilla and surrounding areas were then prepped and draped. The area of involvement was then anesthetized with 1% lidocaine as well as roughly 3 fingerbreadths lateral to it, through the lateral approach, needle was then placed into the cavity and over this, a guidewire placed, and over this, I introduced a peel-away catheter followed by a 10-[place] round Yong-Brooks drain, which was then cut to appropriate length. This did allow gradual evacuation of the fluid and the skin remained over it intact. small opening and the lateral aspect of the skin was then reapproximated with some 3-0 Vicryl stitch and the drain fixed to the skin with 3-0 Vicryl stitch as well and pressure dressing applied along with bulb to the drain, and the patient taken to the recovery room in satisfactory condition. Fluid did not look overtly infected. It was sent for pathology as it was semi solid and cultures. The patient tolerated the procedure well. Wilfred De La Garza MD /[id number]
== END 2021-07-18 14:25 | disposition home or self-care (01) ==
LOC: JP.SDS 08:44
PROVIDERS: ATTEND Surgery
DX: M79.89 Other specified soft tissue disorders (principal); S41.101A Unspecified open wound of right upper arm, initial encounter; I89.8 Other specified noninfective disorders of lymphatic vessels and lymph nodes; I10 Essential (primary) hypertension; E78.5 Hyperlipidemia, unspecified; I48.91 Unspecified atrial fibrillation; I25.10 Atherosclerotic heart disease of native coronary artery without angina pectoris; G47.33 Obstructive sleep apnea (adult) (pediatric); Z01.812 Encounter for preprocedural laboratory examination; Z86.73 Personal history of transient ischemic attack (TIA), and cerebral infarction without residual deficits; Z20.822 Contact with and (suspected) exposure to COVID-19
CPT/HCPCS: 0241U; 10140; 87070; 87075; 87205; 88305; A9270; J0690; J2704; J3010; J3490; J7121

== ENCOUNTER 2021-09-23 07:48 | Day surgery (SDC) | payer MEDICARE ==
[~2021-09-23 07:48] MED LIST changes: +Bupivacaine 0.5% 50 ML MDV ONE; +Lidocaine 1% with EPINEPHrine 1:100,000 50 ML MDV ONE; -fentaNYL 100 MCG/2 ML SDV ONE
[2021-09-23] MEDS ORDERED: ceFAZolin 1 GM in Premix Bag 1 BAG IV ONE (08:30)
[2021-09-23] MEDS ORDERED: Dextrose 5%-Lactated Ringers 1,000 ML IV SCH (08:30)
[2021-09-23] MEDS ORDERED: Acetaminophen 500 MG Tab PO ONE (08:30)
[2021-09-23 08:48] LABS: CORONAVIRUS COVID-19 NAA NEGATIVE (NEGATIVE)
[2021-09-23] MEDS ORDERED: Lidocaine 1% with EPINEPHrine 1:100,000 50 ML MDV ONE (11:24)
[2021-09-23] MEDS ORDERED: Bupivacaine 0.5% 50 ML MDV ONE (11:24)
[2021-09-23 12:53] VITALS: BP 128/83; PULSE 72
[2021-09-23] MEDS ORDERED: Sulfamethoxazole/Trimethoprim 800-160 MG Tab PO ONE (13:00)
== END 2021-09-23 14:05 | disposition home or self-care (01) ==
LOC: JP.SDS 07:48
PROVIDERS: ATTEND Surgery
DX: L02.411 Cutaneous abscess of right axilla (principal); I48.91 Unspecified atrial fibrillation; I10 Essential (primary) hypertension; I25.10 Atherosclerotic heart disease of native coronary artery without angina pectoris; E78.5 Hyperlipidemia, unspecified; E11.9 Type 2 diabetes mellitus without complications; Z86.73 Personal history of transient ischemic attack (TIA), and cerebral infarction without residual deficits; Z01.812 Encounter for preprocedural laboratory examination; Z20.822 Contact with and (suspected) exposure to COVID-19
CPT/HCPCS: 0241U; 10180; 36415; 85610; 87070; 87075; 87077; 87186; 87205; A9270; J0690; J2704; J3490; J7121; 88304

== ENCOUNTER 2021-11-14 06:31 | Day surgery (SDC) | payer MEDICARE ==
[~2021-11-14 06:31] MED LIST changes: -Bupivacaine 0.5% 50 ML MDV ONE; +Dextrose 5%-Lactated Ringers 1,000 ML IV SCH; -Lidocaine 1% with EPINEPHrine 1:100,000 50 ML MDV ONE; -Propofol 200 MG/20 ML SDV ONE
[2021-11-14] MEDS ORDERED: Acetaminophen 500 MG Tab PO ONE (06:45)
[2021-11-14] MEDS ORDERED: Iopamidol 612 MG/ML 100 ML Bottle IV PRN (07:20)
[2021-11-14] MEDS ORDERED: Sodium Chloride 0.9% 50 ML IV SCH (07:30)
[2021-11-14 07:38] LABS: CORONAVIRUS COVID-19 NAA POSITIVE (NEGATIVE)
[2021-11-14] MEDS ORDERED: Midazolam 1 MG/ML 2 ML SDV ONE (07:56)
[2021-11-14] MEDS ORDERED: fentaNYL 100 MCG/2 ML SDV ONE (07:56)
[2021-11-14] MEDS ORDERED: Propofol 200 MG/20 ML SDV ONE (07:56)
[2021-11-14] MEDS ORDERED: Bupivacaine 0.5% 50 ML MDV ONE (08:40)
[2021-11-14] MEDS ORDERED: Lidocaine 1% with EPINEPHrine 1:100,000 50 ML MDV ONE (08:42)
[2021-11-14 14:01] VITALS: BP 140/79; PULSE 66
== END 2021-11-14 13:50 | disposition home or self-care (01) ==
LOC: JP.SDS 06:31
PROVIDERS: ATTEND Surgery
DX: L02.411 Cutaneous abscess of right axilla (principal); I10 Essential (primary) hypertension; U07.1 COVID-19; I48.91 Unspecified atrial fibrillation; I25.10 Atherosclerotic heart disease of native coronary artery without angina pectoris; E11.9 Type 2 diabetes mellitus without complications
CPT/HCPCS: 0241U; 36415; 73202-RT; 80048; 85610; 87070; 87075; 87102; 87205; 88304; A9270-GY; J2250; J2704; J3010; J3490; J7121

== ENCOUNTER 2023-06-04 06:27 | Day surgery (SDC) | payer MEDICARE ==
[2023-06-04] MEDS ORDERED: Bupivacaine 0.5% 50 ML MDV ONE (06:37)
[2023-06-04] MEDS ORDERED: Lidocaine 1% with EPINEPHrine 1:100,000 50 ML MDV ONE (06:37)
[2023-06-04] MEDS ORDERED: Meropenem 500 MG SDV ONE (06:53)
[2023-06-04] MEDS ORDERED: Dextrose 5%-Lactated Ringers 1,000 ML IV SCH (07:00)
[2023-06-04] MEDS ORDERED: Propofol 200 MG/20 ML SDV ONE (07:12)
[2023-06-04] MEDS ORDERED: fentaNYL 50 MCG/ML SDV ONE (07:12)
[2023-06-04 09:29] VITALS: BP 162/75; PULSE 83
== END 2023-06-04 10:15 | disposition home or self-care (01) ==
LOC: JP.SDS 06:27
PROVIDERS: ATTEND Surgery
DX: L02.411 Cutaneous abscess of right axilla (principal); L92.9 Granulomatous disorder of the skin and subcutaneous tissue, unspecified; I10 Essential (primary) hypertension; I25.10 Atherosclerotic heart disease of native coronary artery without angina pectoris; I48.91 Unspecified atrial fibrillation; F41.9 Anxiety disorder, unspecified; E03.9 Hypothyroidism, unspecified; E11.9 Type 2 diabetes mellitus without complications; Z95.0 Presence of cardiac pacemaker; I49.5 Sick sinus syndrome; Z91.040 Latex allergy status; Z88.5 Allergy status to narcotic agent; Z88.8 Allergy status to other drugs, medicaments and biological substances
CPT/HCPCS: 23930; 87070; 87075; 87077; 87186; 87205; J2185; J2704; J3010; J3490; J7121; 88304

== ENCOUNTER 2025-02-17 19:03 | Emergency (ER) | payer MEDICARE ==
[2025-02-17] MEDS: Ketorolac 30 MG/ML SDV IM ONE (19:45)
[2025-02-17 20:58] VITALS: BP 146/90; PULSE 77
== END 2025-02-17 20:58 | disposition home or self-care (01) ==
LOC: JP.ED 19:03
DX: S46.911A Strain of unspecified muscle, fascia and tendon at shoulder and upper arm level, right arm, initial encounter (principal); I10 Essential (primary) hypertension; I48.91 Unspecified atrial fibrillation; I25.10 Atherosclerotic heart disease of native coronary artery without angina pectoris; E11.9 Type 2 diabetes mellitus without complications; E03.9 Hypothyroidism, unspecified; Z79.01 Long term (current) use of anticoagulants; Z95.0 Presence of cardiac pacemaker; Z88.8 Allergy status to other drugs, medicaments and biological substances; Z91.040 Latex allergy status; Z88.5 Allergy status to narcotic agent; Z79.899 Other long term (current) drug therapy; Z86.16 Personal history of COVID-19; Z90.49 Acquired absence of other specified parts of digestive tract; W19.XXXA Unspecified fall, initial encounter
CPT/HCPCS: 73030; 96372; 99283; J1885